=== PATIENT | male | born 1980 | race Caucasian/White ===

== ENCOUNTER 2017-03-24 19:49 | Emergency (ER) | payer OTHER, MEDICAID ==
[2017-03-24 19:50] VITALS: BMI 28.8
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
[2017-03-24 22:03] VITALS: BP 118/68; PULSE 74; RESP 18; TEMP 98.6; O2SAT 99
--- NOTE | 2017-03-25 10:44 | RAD ---
PROCEDURE: Lumbar spine dated 03/24/2017. HISTORY: back pain r/o fx COMPARISON: Comparison made with prior radiographs of the lumbar spine 07/01/2015. Exit FINDINGS: BONES: No evidence of acute compression fractures no retropulsed fragments. Vertebral bodies exhibit normal stature. Vertebral bodies and facets normally aligned. Minor multilevel. DISC SPACES: Narrowing minor posterior disc space narrowing seen at several lower thoracic, few upper lumbar levels as well as the L5-S1 disc space with minimal small marginal anterolateral osteophyte formation. Facet joints are slightly overgrown at the L5-S1, L4-L5 and L3-L4 levels. OTHER FINDINGS: None. IMPRESSION: No acute fractures. Minor multilevel degenerative spondylosis. Of the
== END 2017-03-24 22:08 | disposition home or self-care (01) ==
LOC: ED 19:49
DX: S16.1XXA Strain of muscle, fascia and tendon at neck level, initial encounter (principal); S39.012A Strain of muscle, fascia and tendon of lower back, initial encounter; V43.62XA Car passenger injured in collision with other type car in traffic accident, initial encounter; Y92.410 Unspecified street and highway as the place of occurrence of the external cause

== ENCOUNTER 2017-09-04 16:08 | Observation (INO) | payer MEDICAID, OTHER ==
[2017-09-04 17:14] VITALS: BMI 28.1
--- NOTE | 2017-09-04 17:16 | ED PDOC ---
Arrival/HPI - General Time Seen by Provider: 09/04/17 16:16 Historian: Patient - History of Present Illness Narrative History of Present Illness (Text): 09/04/17 17:10 37 y/o male, no pmh, nkda, c/o fever and bodyache x 2 days. Pt. stated that he has bodyache and fever for the past 1-2 days, incidentally been having LLQ abdominal pain for the past 3 days on and off, no urinary symptoms, no testicular pain, no rash, no chest pain or shortness of breath, no other medical or psychological complaints. Past Medical History - Provider Review Nursing Documentation Reviewed: Yes - Past History Past History: No Previous - Infectious Disease Hx of Infectious Diseases: None - Tetanus Immunization Tetanus Immunization: Unknown - HEENT Other/Comment: sty tp R upper eyelid - Psychiatric Hx Psychophysiologic Disorder: No Hx Substance Use: No - Surgical History Hx Orthopedic Surgery: Yes (R 5TH FINGER) Other/Comment: Right Hand Sx. - Anesthesia Hx Anesthesia: No Hx Anesthesia Reactions: No Hx Malignant Hyperthermia: No - Suicidal Assessment Feels Threatened In Home Enviroment: No Family/Social History - Physician Review Nursing Documentation Reviewed: Yes Family/Social History: Unknown Family HX Smoking Status: Never Smoked Hx Alcohol Use: No Hx Substance Use: No Hx Substance Use Treatment: No Allergies/Home Meds Allergies/Adverse Reactions: Allergies No Known Allergies Allergy (Verified 05/31/15 12:27) Review of Systems - Review of Systems Constitutional: Fatigue, Fevers Eyes: absent: Vision Changes ENT: absent: Hearing Changes Respiratory: Cough. absent: SOB, Sputum Cardiovascular: absent: Chest Pain Gastrointestinal: Abdominal Pain. absent: Diarrhea, Nausea, Vomiting Musculoskeletal: absent: Arthralgias Skin: absent: Rash, Pruritis Neurological: absent: Headache, Dizziness Psychiatric: absent: Anxiety, Depression Physical Exam Vital Signs Reviewed: Yes Vital Signs Temp Pulse Resp BP Pulse Ox 09/04/17 21:42 98.3 F 09/04/17 21:40 98.3 F 09/04/17 21:18 63 18 105/68 98 09/04/17 18:22 95 H 18 130/70 99 09/04/17 16:57 101.6 F H 97 H 18 128/68 98 Temperature: Afebrile Blood Pressure: Normal Pulse: Regular Respiratory Rate: Normal Appearance: Positive for: Well-Appearing, Non-Toxic, Comfortable Pain Distress: Moderate Mental Status: Positive for: Alert and Oriented X 3 - Systems Exam Head: Present: Atraumatic, Normocephalic Pupils: Present: PERRL Extroacular Muscles: Present: EOMI Conjunctiva: Present: Normal Ears: Present: NORMAL TM, Normal Canal. No: Erythema Mouth: Present: Moist Mucous Membranes Pharnyx: No: ERYTHEMA, EXUDATE, TONSILS ENLARGED, Uvular Deviation, Soft Palate/ Uvular Edema Nose (External): No: Abrasion, Contusion, Laceration Nose (Internal): Present: Normal Inspection. No: No Active Bleeding, Rhinorrhea , Septal Hematoma, Epistaxis Neck: Present: Normal Range of Motion. No: Meningeal Signs, Lymphadenopathy Respiratory/Chest: Present: Clear to Auscultation, Good Air Exchange, Rhonchi ( on the lt. midlobe that clear with coughing. ). No: Respiratory Distress, Accessory Muscle Use, Wheezes, Decreased Breath Sounds, Rales, Retracting, Tachypneic, Tender to Palpation Cardiovascular: Present: Regular Rate and Rhythm, Normal S1, S2. No: Murmurs Abdomen: Present: Tenderness (+LLQ tenderness and mild +periumbilical tenderness ), Normal Bowel Sounds. No: Distention, Peritoneal Signs Back: Present: Normal Inspection Upper Extremity: Present: Normal Inspection. No: Cyanosis, Edema Lower Extremity: Present: Normal Inspection. No: Edema Neurological: Present: GCS=15, Speech Normal, Motor Func Grossly Intact, Gait Normal, Memory Normal Skin: Present: Warm, Dry, Normal Color. No: Rashes Psychiatric: Present: Alert, Oriented x 3, Normal Insight, Normal Concentration Medical Decision Making ED Course and Treatment: 09/04/17 17:20 -labs/ua/rapid flu -cxr -CT abdomen and pelvis -IVF/toradol/pepcid/tylenol -Observe and reassess 09/04/17 21:30 -Chest xray show no active disease -Negative influenza -Labs are non-significant, negative lipase -Lactic acid within normal limit. -UA show no UTI -CT abdomen and pelvis show: 1. Probable LLL pneumonia. Followup to resolution to exclude underlying pathology. 2. Borderline enlarged appendix. No definite inflammation. Clinical correlation is needed. 3. Incidental/non-acute findings are described above. 09/04/17 21:30 -IV zosyn ordered for the coverage for pneumonia and possible appendicitis ( less chance). -I spoke to the medical assistant instructor Dr. Benitez and Dr. Deon Brannon, discussed about the case/labs/radiology result in detail, agreed on the admission. -I spoke to the surgical instrument maker Dr. Benito, discussed about the case and findings, will come to evaluate the patient and discussed with Dr. Granda for consult. 09/04/17 21:55 -I discussed with Dr. Mckeon, discussed about the case in detail, request hospitalist to admit and will consult the case, notify the surgical instrument maker for evaluation now (done). - Lab Interpretations Microbiology Results: Microbiology Results 09/04/17 21:30 Blood-Venous Blood Culture - Preliminary NO GROWTH AFTER 4 DAYS 09/04/17 21:00 Blood-Venous Blood Culture - Preliminary NO GROWTH AFTER 4 DAYS Lab Results: 09/05/17 05:30 09/05/17 05:30 Lab Results 09/05/17 07:00: Influenza Type A Ab 1:32 H, Influenza Type B Ab 1:8 H 09/05/17 06:00: HIV 1&2 Ag/Ab, 4th Gen Nonreactive 09/05/17 05:30: Sodium 140, Chloride 103, Potassium 3.4 L, Carbon Dioxide 26, Anion Gap 13, BUN 13, Creatinine 0.9, Est GFR ( Amer) > 60, Est GFR (Non- Af Amer) > 60, Random Glucose 118 H, Calcium 9.0, Total Bilirubin 0.5, AST 38, ALT 40, Alkaline Phosphatase 128 H, Total Protein 7.3, Albumin 3.7, Globulin 3.6 , Albumin/Globulin Ratio 1.0 L 09/05/17 05:30: WBC 7.7, RBC 4.34, Hgb 13.1 L, Hct 38.8 L, MCV 89.4, MCH 30.2, MCHC 33.8, RDW 12.5, Plt Count 200, MPV 10.3, Gran % 73.5 H, Lymph % (Auto) 15.0 L, [place] % (Auto) 9.1 H, Eos % (Auto) 2.1, Baso % (Auto) 0.3, Gran # 5.64, Lymph # 1.2, [place] # 0.7 H, Eos # 0.2, Baso # 0.02 09/05/17 05:30: Mycoplasma pneumon IgG 1.31 H, Mycoplasma pneumon IgM 283 09/05/17 05:30: Procalcitonin 0.07 L 09/04/17 17:35: pO2 32, VBG pH 7.35, VBG pCO2 53.0, VBG HCO3 29.3 H, VBG Total CO2 30.9 H, VBG O2 Sat (Calc) 67.8 H, VBG Base Excess 2.5 H, VBG Potassium 4.0, Sodium 135.0, Chloride 100.0, Glucose 110, Lactate 1.1, FiO2 21.0, Venous Blood Potassium 4.0 09/04/17 17:35: WBC 9.1 D, RBC 4.65, Hgb 14.4, Hct 42.1, MCV 90.5, MCH 31.0, MCHC 34.2, RDW 12.7, Plt Count 213, MPV 10.5, Gran % 76.3 H, Lymph % (Auto) 16.5 L, [place] % (Auto) 6.7 H, Eos % (Auto) 0.3 L, Baso % (Auto) 0.2, Gran # 6.95 H, Lymph # 1.5, [place] # 0.6, Eos # 0.0, Baso # 0.02 09/04/17 17:35: Sodium 137, Chloride 99, Potassium 3.8, Carbon Dioxide 28, Anion Gap 14, BUN 11, Creatinine 0.9, Est GFR ( Amer) > 60, Est GFR (Non- Af Amer) > 60, Random Glucose 107, Calcium 9.4, Magnesium 2.0, Total Bilirubin 0.6, AST 29, ALT 41, Alkaline Phosphatase 137 H, Total Protein 8.3, Albumin 4.4 , Globulin 4.0, Albumin/Globulin Ratio 1.1, Lipase 43 09/04/17 17:35: Urine Color Yellow, Urine Appearance Clear, Urine pH 6.0, Ur Specific [place] 1.025, Urine Protein Trace H, Urine Glucose (UA) Negative, Urine Ketones Trace H, Urine Blood Negative, Urine Nitrate Negative, Urine Bilirubin Negative, Urine Urobilinogen 0.2, Ur Leukocyte Esterase Negative, Urine RBC 1 - 3, Urine WBC 2 - 5, Ur Epithelial Cells 0 - 2, Urine Bacteria Mod 09/04/17 17:20: Influenza Typ A,B (EIA) Negative for flu a/b - RAD Interpretation Radiology Orders: 09/04/17 17:17 CHEST PORTABLE [RAD] Stat 09/04/17 17:57 ABDOMEN & PELVIS [ABD PELVIS PO & IV CONTRAST] [CT] Stat 09/05/17 01:02 CHEST TWO VIEWS (PA/LAT) [RAD] Routine COMPARISON: No relevant prior studies available. FINDINGS: Lower thorax: Patchy consolidation within left lower lobe. ABDOMEN: Liver: Probable mild fatty infiltration. Gallbladder and bile ducts: No calcified stones. No ductal dilation. Pancreas: No ductal dilation. No mass. Spleen: No splenomegaly. Adrenals: No mass. Kidneys and ureters: No mass. No hydronephrosis. Stomach and bowel: No definite mural thickening. No obstruction. Appendix: Borderline enlarged appendix, 6-7 mm in diameter. No definite associated inflammatory stranding. PELVIS: Bladder: Unremarkable. Reproductive: Unremarkable as visualized. ABDOMEN and PELVIS: Intraperitoneal space: No significant fluid collection. No free air. Bones/joints: No acute fracture. Soft tissues: Unremarkable. Vasculature: Unremarkable. No aneurysm. Lymph nodes: No pathologically enlarged lymph nodes. IMPRESSION: 1. Probable LLL pneumonia. Followup to resolution to exclude underlying pathology. 2. Borderline enlarged appendix. No definite inflammation. Clinical correlation is needed. 3. Incidental/non-acute findings are described above. Dictated By: Jeffery Loera MD Dictated Date/Time: 09/04/172118 Signed By: Jeffery Loera MD Date Signed: 2118 Chest xray: +pneumonia noted. Flaring Machine Operator: Radiologist - Medication Orders Current Medication Orders: Discontinued Medications Acetaminophen (Tylenol 325mg Tab) 650 mg PO STAT STA Stop: 09/04/17 17:18 Last Admin: 09/04/17 17:46 Dose: 650 mg MAR Pain/Vitals Document 09/04/17 17:46 SF (Rec: 09/04/17 17:46 SF [facility] [id number]) Pain Reassessment Is This A Pain ReAssessment? Yes Sleep Is patient sleeping during reassessment? No Presence of Pain Presence of Pain Yes Acetaminophen (Tylenol 325mg Tab) 650 mg PO Q6H PRN PRN Reason: Fever >100.4 F Last Admin: 09/05/17 04:27 Dose: 650 mg MAR Pain/Vitals Document 09/05/17 04:27 EMILY (Rec: 09/05/17 04:27 EMILY [id number]) Vitals Temperature (97.6 F-99.6 F) 102.3 F Temperature Source Oral Re-Assess: MAR Pain/Vitals Document 09/05/17 05:27 EMILY (Rec: 09/05/17 07:42 EMILY [id number]) Pain Reassessment Is This A Pain ReAssessment? Yes Sleep Is patient sleeping during reassessment? No Presence of Pain Presence of Pain No Pain Scale Used Pain Scale Used Numeric Azithromycin (Zithromax) 500 mg PO DAILY CHRYSTAL PRN Reason: Protocol Last Admin: 09/07/17 09:18 Dose: 500 mg Benzocaine/Menthol (Cepacol Sore Throat) 1 erin MT Q2H PRN PRN Reason: Sore Throat Last Admin: 09/05/17 17:28 Dose: 1 erin Famotidine (Pepcid) 20 mg IVP STAT STA Stop: 09/04/17 17:22 Last Admin: 09/04/17 17:46 Dose: 20 mg IVP Administration Document 09/04/17 17:46 SF (Rec: 09/04/17 17:47 SF [id number]) Charges for Administration # of IVP Administrations 1 Guaifenesin/Dextromethorphan (Robitussin Dm) 10 ml PO Q4H PRN PRN Reason: Cough Last Admin: 09/05/17 17:28 Dose: 10 ml Sodium Chloride (Sodium Chloride 0.9%) 1,000 mls @ 999 mls/hr IV .Q1H1M STA Stop: 09/04/17 18:17 Last Admin: 09/04/17 17:47 Dose: 999 mls/hr eMAR Start Stop Document 09/04/17 17:47 SF (Rec: 09/04/17 17:47 SF [facility] [id number]) Intravenous Solution Start Date 09/04/17 Start Time 17:47 End Date 09/04/17 End time 18:48 Total Infusion Time 61 Piperacillin Sod/Tazobactam Sod (Zosyn 3.375 In Ns 100ml) 100 mls @ 200 mls/hr IVPB STAT STA PRN Reason: Protocol Stop: 09/04/17 21:55 Last Admin: 09/04/17 21:49 Dose: 200 mls/hr eMAR Start Stop Document 09/04/17 21:49 SF (Rec: 09/04/17 21:50 SF [facility] [id number]) Intravenous Solution Start Date 09/04/17 Start Time 21:50 End Date 09/04/17 End time 22:20 Total Infusion Time 30 Piperacillin Sod/Tazobactam Sod (Zosyn 3.375 In Ns 100ml) 100 mls @ 200 mls/hr IVPB Q6 CHRYSTAL PRN Reason: Protocol Stop: 09/05/17 06:29 Last Admin: 09/05/17 11:36 Dose: 200 mls/hr eMAR Start Stop Document 09/05/17 11:36 ML (Rec: 09/05/17 11:36 ML [id number]) Intravenous Solution Start Date 09/05/17 Start Time 11:36 End Date 09/05/17 End time 12:30 Total Infusion Time 54 Ceftriaxone Sodium (Rocephin 2 Gm Ivpb) 2 gm in 100 mls @ 100 mls/hr IVPB DAILY CHRYSTAL PRN Reason: Protocol Last Admin: 09/07/17 09:48 Dose: 100 mls/hr eMAR Start Stop Document 09/07/17 09:48 RV (Rec: 09/07/17 09:48 RV [id number]) Intravenous Solution Start Date 09/07/17 Start Time 09:48 End Date 09/07/17 End time 10:48 Total Infusion Time 60 Ketorolac Tromethamine (Toradol) 30 mg IVP STAT STA Stop: 09/04/17 17:18 Last Admin: 09/04/17 17:47 Dose: 30 mg MAR Pain Assessment Document 09/04/17 17:47 SF (Rec: 09/04/17 17:47 SF [id number]) Pain Reassessment Is this a pain reassessment? Yes Sleep Is patient sleeping during reassessment? No Presence of Pain Presence of Pain Yes IVP Administration Document 09/04/17 17:47 SF (Rec: 09/04/17 17:47 SF [id number]) Charges for Administration # of IVP Administrations 1 Ketorolac Tromethamine (Toradol) 15 mg IVP Q6 PRN PRN Reason: Pain, moderate (4-7) Last Admin: 09/05/17 13:37 Dose: 15 mg MAR Pain Assessment Document 09/05/17 13:37 ML (Rec: 09/05/17 13:37 ML [id number]) Pain Reassessment Is this a pain reassessment? No Presence of Pain Presence of Pain Yes IVP Administration Document 09/05/17 13:37 ML (Rec: 09/05/17 13:37 ML [id number]) Charges for Administration # of IVP Administrations 1 Re-Assess: MAR Pain Assessment Document 09/05/17 14:36 ML (Rec: 09/05/17 14:36 ML [id number]) Pain Reassessment Is this a pain reassessment? Yes Presence of Pain Presence of Pain No Ondansetron HCl (Zofran Inj) 4 mg IVP Q4H PRN PRN Reason: Nausea/Vomiting Last Admin: 09/05/17 13:32 Dose: 4 mg IVP Administration Document 09/05/17 13:32 ML (Rec: 09/05/17 13:32 ML [id number]) Charges for Administration # of IVP Administrations 1 Oseltamivir Phosphate (Tamiflu Cap) 75 mg PO BID CHRYSTAL PRN Reason: Protocol Stop: 09/10/17 10:01 Last Admin: 09/07/17 09:19 Dose: 75 mg Pantoprazole Sodium (Protonix Inj) 40 mg IVP DAILY [facility] Last Admin: 09/06/17 10:34 Dose: 40 mg IVP Administration Document 09/06/17 10:34 VS (Rec: 09/06/17 10:34 VS [id number]) Charges for Administration # of IVP Administrations 1 Pantoprazole Sodium (Protonix Ec Tab) 40 mg PO ACB [facility] Last Admin: 01/10/18 08:16 Dose: 40 mg Pneumococcal Polyvalent Vaccine (Pneumovax 23 Vaccine) 0.5 ml IM .ONCE ONE Stop: 09/05/17 00:35 Last Admin: 09/05/17 08:50 Dose: Immunization Registry Document 09/05/17 08:50 ML (Rec: 09/05/17 08:51 ML [id number]) Immunization Registry Consent Date 09/04/17 Potassium Chloride (K-Dur 20 Meq Er Tab) 20 meq PO ONCE ONE Stop: 09/05/17 08:58 Last Admin: 09/05/17 11:36 Dose: 20 meq - PA / PALLIATIVE CARE PHYSICIAN / Resident Statement MD/DO has reviewed & agrees with the documentation as recorded. Disposition/Present on Arrival - Present on Arrival Any Indicators Present on Arrival: No History of DVT/PE: No History of Uncontrolled Diabetes: No Urinary Catheter: No History of Decub. Ulcer: No History Surgical Site Infection Following: None - Disposition Have Diagnosis and Disposition been Completed?: Yes Diagnosis: Periumbilical abdominal pain, Pneumonia Disposition: HOSPITALIZED Disposition Time: 21:32 Patient Plan: Admission, Observation Condition: STABLE
[2017-09-04] MEDS ORDERED: Sodium Chloride 0.9% 1,000 ML IV STA (17:17)
[2017-09-04] MEDS ORDERED: Iohexol 240 (50 ml) ONE (18:01)
[2017-09-04 18:43] LABS: VENOUS BLOOD GAS BASE EXCESS 2.5 mmol/L (0.0-2.0); VENOUS BLOOD GAS PO2 32 mm/Hg (30-55); VENOUS BLOOD PH 7.35 (7.32-7.43)
[2017-09-04 18:46] LABS: ALB/GLOB RATIO 1.1 (1.1-1.8); ALBUMIN 4.4 g/dL (3.0-4.8); ALT/SGPT 41 U/L (7-56); AST/SGOT 29 U/L (17-59); BLOOD UREA NITROGEN 11 mg/dL (7-21); CALCIUM 9.4 mg/dL (8.4-10.5); GFR AFRICAN-AMERICAN > 60; GFR NON-AFRICAN AMERICAN > 60; LIPASE 43 U/L (23-300)
[2017-09-04 18:47] LABS: BASO # 0.02 K/mm3 (0.0-2.0); BASO % 0.2 % (0.0-3.0); EOS % 0.3 % (1.5-5.0); GRAN # 6.95 (1.4-6.5); GRAN % 76.3 % (50.0-68.0); HEMOGLOBIN 14.4 g/dL (14.0-18.0); LYMPH # 1.5 (1.2-3.4); LYMPH % 16.5 % (22.0-35.0); MEAN CELL VOLUME 90.5 fl (80.0-105.0); MEAN CORPUSCULAR HGB CONC 34.2 g/dl (31.0-37.0); MEAN PLATELET VOLUME 10.5 fl (7.0-11.0); MONO # 0.6 (0.1-0.6); MONO % 6.7 % (1.0-6.0); RBC 4.65 10^6/uL (3.5-6.1); RED CELL DISTRIBUTION WIDTH 12.7 % (11.5-14.5); WHITE BLOOD COUNT 9.1 10^3/ul (4.5-11.0)
[2017-09-04 18:49] LABS: URINE BILIRUBIN NEGATIVE (NEGATIVE); URINE BLOOD NEGATIVE (NEGATIVE); URINE GLUCOSE (UA) NEGATIVE (NEGATIVE); URINE LEUKOCYTE ESTERASE NEGATIVE Leu/uL (NEGATIVE); URINE NITRATE NEGATIVE (NEGATIVE); URINE PROTEIN TRACE mg/dL (<30 mg/dL); URINE UROBILINOGEN 0.2 E.U./dL (<1 E.U./dL)
[2017-09-04 18:51] LABS: URINE APPEARANCE CLEAR (CLEAR); URINE COLOR YELLOW (YELLOW)
[2017-09-04 19:01] LABS: URINE EPITHELIAL CELLS 0 - 2 /hpf (0-5)
[2017-09-04 19:02] LABS: URINE BACTERIA MOD (NEG)
[2017-09-04] MEDS ORDERED: Iohexol 350 MG/100 ML VIAL ONE (19:56)
--- NOTE | 2017-09-04 21:20 | CT ---
EXAM: CT Abdomen and Pelvis With Intravenous Contrast CLINICAL HISTORY: 37 years old, male; Pain; Abdominal pain; Patient HX: Llq pain TECHNIQUE: Axial computed tomography images of the abdomen and pelvis with intravenous contrast. All CT scans at this facility use one or more dose reduction techniques, viz.: automated exposure control; ma/kV adjustment per patient size (including targeted exams where dose is matched to indication; i.e. head); or iterative reconstruction technique. Coronal and sagittal reformatted images were created and reviewed. CONTRAST: 98 mL of omnipaque 350 administered intravenously. COMPARISON: No relevant prior studies available. FINDINGS: Lower thorax: Patchy consolidation within left lower lobe. ABDOMEN: Liver: Probable mild fatty infiltration. Gallbladder and bile ducts: No calcified stones. No ductal dilation. Pancreas: No ductal dilation. No mass. Spleen: No splenomegaly. Adrenals: No mass. Kidneys and ureters: No mass. No hydronephrosis. Stomach and bowel: No definite mural thickening. No obstruction. Appendix: Borderline enlarged appendix, 6-7 mm in diameter. No definite associated inflammatory stranding. PELVIS: Bladder: Unremarkable. Reproductive: Unremarkable as visualized. ABDOMEN and PELVIS: Intraperitoneal space: No significant fluid collection. No free air. Bones/joints: No acute fracture. Soft tissues: Unremarkable. Vasculature: Unremarkable. No aneurysm. Lymph nodes: No pathologically enlarged lymph nodes. IMPRESSION: 1. Probable LLL pneumonia. Followup to resolution to exclude underlying pathology. 2. Borderline enlarged appendix. No definite inflammation. Clinical correlation is needed. 3. Incidental/non-acute findings are described above.
[2017-09-04] MEDS ORDERED: cefTRIAXone 1 gm 1 GM/100 ML BAG IVPB STA (21:26)
[2017-09-04] MEDS ORDERED: Piperacillin/Tazobact 3.375 gm 100 ML IVPB STA (21:26)
--- NOTE | 2017-09-04 22:14 | CP.PCM.CON ---
<FarhanJigna - Last Filed: 09/04/17 22:14> History of Present Illness - History of Present Illness History of Present Illness: GENERAL SURGERY CONSULT NOTE FOR DR. WILSON 37yo M with no significant PMHx presents to the ED with fever, chills, and nausea. On Tuesday morning at 1AM, he woke up shaking due to chills. Then he felt hot. He had these symptoms back and forth. Then this morning, he had nausea and dizziness which prompted him to come to the ED. Patient has also been having on and off LUQ pain for weeks. Patient is unable to quantify how many. He reports heartburn after eating spicy food. He has diarrhea sometimes after eating sugary foods. He denies dysuria, frequency, CP, SOB, rhinorrhea, sore throat. He does have a mild nonproductive cough. Flu was negative. PMHx: none Surgeries: Right hand 5th finger tendon reconstruction ~2007 in [place] Allergies: none Social history: denies tobacco, illicit drug use or etoh. From [facility]. No recent travel. Review of Systems - Review of Systems All systems: reviewed and no additional remarkable complaints except (as per HPI ) Past Patient History - Infectious Disease Hx of Infectious Diseases: None - Tetanus Immunizations Tetanus Immunization: Unknown - Past Social History Smoking Status: Never Smoked - CARDIAC Hx Cardiac Disorders: No - PULMONARY Hx Respiratory Disorders: No - NEUROLOGICAL Hx Neurological Disorder: No - HEENT Other/Comment: sty tp R upper eyelid - RENAL Hx Chronic Kidney Disease: No - ENDOCRINE/METABOLIC Hx Endocrine Disorders: No - HEMATOLOGICAL/ONCOLOGICAL Hx Blood Disorders: No - INTEGUMENTARY Hx Dermatological Problems: No - MUSCULOSKELETAL/RHEUMATOLOGICAL Hx Musculoskeletal Disorders: No - GASTROINTESTINAL Hx Gastrointestinal Disorders: No - GENITOURINARY/GYNECOLOGICAL Hx Genitourinary Disorders: No - PSYCHIATRIC Hx Psychophysiologic Disorder: No Hx Substance Use: No - SURGICAL HISTORY Hx Orthopedic Surgery: Yes (R 5TH FINGER) Other/Comment: Right Hand Sx. - ANESTHESIA Hx Anesthesia: No Hx Anesthesia Reactions: No Hx Malignant Hyperthermia: No Meds Allergies/Adverse Reactions: Allergies Allergy/AdvReac Type Severity Reaction Status Date / Time No Known Allergies Allergy Verified 05/31/15 12:27 Physical Exam - Constitutional Appears: Well, Non-toxic, No Acute Distress - Head Exam Head Exam: ATRAUMATIC, NORMAL INSPECTION - Eye Exam Eye Exam: EOMI, Normal appearance - Respiratory Exam Respiratory Exam: NORMAL BREATHING PATTERN. absent: Respiratory Distress - Cardiovascular Exam Cardiovascular Exam: +S1, +S2 - GI/Abdominal Exam GI & Abdominal Exam: Soft, Tenderness (very mild tenderness in LUQ). absent: Distended, Firm, Guarding, Rebound, Rigid Additional comments: Negative McBurney's point No RLQ tenderness on deep palpation - Extremities Exam Extremities exam: Positive for: normal inspection. Negative for: calf tenderness - Neurological Exam Neurological exam: Alert, CN II-XII Intact, Oriented x3 - Psychiatric Exam Psychiatric exam: Normal Affect, Normal Mood - Skin Skin Exam: Dry, Normal Color, Warm Results - Vital Signs Recent Vital Signs: Last Vital Signs Temp 98.3 F 09/04/17 21:42 Pulse 63 09/04/17 21:18 Resp 18 09/04/17 21:18 BP 105/68 09/04/17 21:18 Pulse Ox 98 09/04/17 21:18 - Labs Result Diagrams: 09/04/17 17:35 09/04/17 17:35 Assessment & Plan - Assessment and Plan (Free Text) Assessment: 37yo M with no significant PMHx presents with fever, chills, and nausea. Surgery consulted for rule out appendicitis - Febrile 101.6 on arrival. Currently afebrile - No leukocytosis - CT: appendix borderline enlarged 6-7mm w/o any associated inflammatory stranding. Probable LLL pneumonia - Appendicitis unlikely given benign physical exam, lack of inflammation on CT, and normal labs - LUQ abdominal pain may be referred from LLL pneumonia - Will observe overnight with serial abdominal exams - Will FU AM labs - Discussed plan with Dr. Katie Real PGY_3 <Roderick Wilson - Last Filed: 09/12/17 12:10> Results - Vital Signs Recent Vital Signs: Last Vital Signs Temp 98 F 09/07/17 10:09 Pulse 50 L 09/07/17 10:09 Resp 18 09/07/17 10:09 BP 105/69 09/07/17 10:09 Pulse Ox 97 09/07/17 10:09 - Labs Result Diagrams: 09/07/17 06:00 09/07/17 06:00 Assessment & Plan - Assessment and Plan (Free Text) Assessment: Patient was seen, evaluated and examined by me. I agree with the assessment and plan as per the resident's note.
[2017-09-05] MEDS: Piperacillin/Tazobact 3.375 gm 100 ML IVPB SCH ×3 (00:20→11:36)
[2017-09-05] MEDS ORDERED: Pneumococcal 23-Valent Vaccine IM ONE (00:34)
[2017-09-05] MEDS ORDERED: Influenza Vaccine 60 mcg/0.5 mL SYR (4YR UP) IM ONE (00:34)
--- NOTE | 2017-09-05 00:56 | CP.PCM.HP ---
<GustavoEmmanuel - Last Filed: 09/05/17 02:02> History of Present Illness - History of Present Illness History of Present Illness: Mr. Hitchcock is a 37 year old male with no significant past medical history presents with tactile fever, chills, and nausea that started Tuesday (09/03) morning around 0100. Patient reports that Tuesday morning around 0100 he awoke with shaking chills and states that he felt "hot". He endorses that he intermittent chills and feelings of warmth throughout the next 48 hours. He awoke this morning and felt slightly dizzy and nauseous, which prompted him to come to the hospital for further evaluation. Patient has also been having intermittent LUQ pain for weeks as well as symptoms of indigestion and non- bloody diarrhea that are triggered with certain foods, mostly foods high in fat such as cheese, milk and tortillas. He also endorses a nonproductive cough intermittently for the past week, approximately. He denies any fever, headache , changes in her vision, tinnitus, ear pain/discharge, rhinorrhea, epistaxis, sore throat, neck pain/stiffness, chest pain, palpitations, LE edema, SOB, wheezing, hemoptysis, vomiting, diarrhea, constipation, melena, hematochezia, burning/pain with urination, urinary frequency, rashes, numbness/tingling/ weakness of any extremity, recent travel or any sick contacts. In the ED, patient had a CT Abdomen/Pelvis that showed probably LLL pneumonia and a borderline enlarged appendix. PMH: Denies PSH: Right hand 5th finger tendon reconstruction ~2007 in [place] Family History: Denies Social History: Denies any tobacco, alcohol or illicit drug use; Lives at home with and two children; Originally from [facility]; Works in [employer] Allergies: NKDA Home Medications: As per MAR Present on Admission - Present on Admission Any Indicators Present on Admission: No Review of Systems - Review of Systems Review of Systems: As stated in HPI, otherwise negative Past Patient History - Infectious Disease Hx of Infectious Diseases: None - Tetanus Immunizations Tetanus Immunization: Unknown - Past Social History Smoking Status: Never Smoked - CARDIAC Hx Cardiac Disorders: No - PULMONARY Hx Respiratory Disorders: No - NEUROLOGICAL Hx Neurological Disorder: No - HEENT Other/Comment: sty tp R upper eyelid - RENAL Hx Chronic Kidney Disease: No - ENDOCRINE/METABOLIC Hx Endocrine Disorders: No - HEMATOLOGICAL/ONCOLOGICAL Hx Blood Disorders: No - INTEGUMENTARY Hx Dermatological Problems: No - MUSCULOSKELETAL/RHEUMATOLOGICAL Hx Falls: No - GASTROINTESTINAL Hx Gastrointestinal Disorders: No - GENITOURINARY/GYNECOLOGICAL Hx Genitourinary Disorders: No - PSYCHIATRIC Hx Psychophysiologic Disorder: No Hx Substance Use: No - SURGICAL HISTORY Hx Orthopedic Surgery: Yes (R 5TH FINGER) Other/Comment: Right Hand Sx. - ANESTHESIA Hx Anesthesia: No Hx Anesthesia Reactions: No Hx Malignant Hyperthermia: No Meds Allergies/Adverse Reactions: Allergies Allergy/AdvReac Type Severity Reaction Status Date / Time No Known Allergies Allergy Verified 05/31/15 12:27 Physical Exam - Constitutional Appears: Non-toxic, No Acute Distress - Head Exam Head Exam: ATRAUMATIC, NORMAL INSPECTION, NORMOCEPHALIC - Eye Exam Eye Exam: EOMI, Normal appearance, PERRL. absent: Conjunctival injection, Nystagmus, Periorbital swelling, Periorbital tenderness, Scleral icterus Pupil Exam: NORMAL ACCOMODATION, PERRL. absent: Fixed, Irregular, Miosis, Mydriatic, Unequal - ENT Exam ENT Exam: Mucous Membranes Moist, Normal Exam, Normal External Ear Exam, Normal Oropharynx - Neck Exam Neck exam: Positive for: Full Rom, Normal Inspection. Negative for: Lymphadenopathy, Meningismus, Tenderness, Thyromegaly - Respiratory Exam Respiratory Exam: Decreased Breath Sounds (LLL decreased breath sounds), NORMAL BREATHING PATTERN. absent: Accessory Muscle Use, Chest Wall Tenderness, Clear to Auscultation Bilateral, Prolonged Expiratory Phase, Rales, Rhonchi, Wheezes, Respiratory Distress, Stridor - Cardiovascular Exam Cardiovascular Exam: REGULAR RHYTHM, RRR, +S1, +S2. absent: Bradycardia, Tachycardia, Clicks, Diastolic murmur, Gallop, Irregular Rhythm, JVD, Rubs, +S4 , Systolic Murmur - GI/Abdominal Exam GI & Abdominal Exam: Normal Bowel Sounds, Soft, Tenderness (Mild LUQ tenderness to deep palpation; Negative McBurneys and Negative [place]). absent: Bruit, Diminished Bowel Sounds, Distended, Firm, Guarding, Hernia, Hyperactive Bowel Sounds, Hypoactive Bowel Sounds, Mass, Organomegaly, Pulsatile Mass, Rebound, Rigid - Extremities Exam Extremities exam: Positive for: full ROM, normal capillary refill, normal inspection, pedal pulses present. Negative for: calf tenderness, joint swelling , pedal edema, tenderness - Back Exam Back exam: FULL ROM, NORMAL INSPECTION. absent: CVA tenderness (L), CVA tenderness (R), muscle spasm, paraspinal tenderness, rash noted, tenderness, vertebral tenderness - Neurological Exam Neurological exam: Alert, CN II-XII Intact, Normal Gait, Oriented x3 - Psychiatric Exam Psychiatric exam: Normal Affect, Normal Mood - Skin Skin Exam: Dry, Intact, Normal Color, Warm Results - Vital Signs Recent Vital Signs: Last Vital Signs Temp 98.3 F 09/04/17 22:58 Pulse 64 09/04/17 22:58 Resp 20 09/05/17 00:00 BP 101/57 L 09/04/17 22:58 Pulse Ox 96 09/04/17 22:58 - Labs Result Diagrams: 09/04/17 17:35 09/04/17 17:35 Assessment & Plan - Assessment and Plan (Free Text) Assessment: 37 year old male with no significant past medical history presents with tactile fever, chills, and nausea that started Tuesday (09/03) morning around 0100. In the ED, patient had a CT Abdomen/Pelvis that showed probably LLL pneumonia and a borderline enlarged appendix. Plan: 1. LLL Pneumonia -CT Abdomen/Pelvis showing probable LLL pneumonia with Chest X-Ray portable read pending -Chest X-Ray Two View (PA/Lateral) ordered for AM -Zosyn 3.375mg IVPB Q6 -Tylenol PRN for Fever -Zofran PRN for N/V -Rapid Influenza A&B, Legionella, HIV, Mycoplasma, Blood Culture and Procalcitonin all pending -Daily CBC -ID Consulted 2. Mildly Enlarged Appendix -CT Abdomen/Pelvis showing mildly enlarged appendix -Toradol Q6 PRN for pain control -Regular Diet -Surgery consulted GI Prophylaxis: Protonix DVT Prophylaxis: SCD's Patient seen and evaluated with attending, Dr. Deon Brannon. - Date & Time Date: 09/05/17 Time: 00:57 <Deon Brannon - Last Filed: 09/06/17 06:34> Results - Vital Signs Recent Vital Signs: Last Vital Signs Temp 102.3 F H 09/05/17 04:27 Pulse 64 09/04/17 22:58 Resp 20 09/05/17 00:00 BP 101/57 L 09/04/17 22:58 Pulse Ox 96 09/04/17 22:58 - Labs Result Diagrams: 09/05/17 05:30 09/05/17 05:30
[2017-09-05 06:27] LABS: BASO # 0.02 K/mm3 (0.0-2.0); BASO % 0.3 % (0.0-3.0); EOS # 0.2 (0.0-0.7); EOS % 2.1 % (1.5-5.0); GRAN # 5.64 (1.4-6.5); GRAN % 73.5 % (50.0-68.0); HEMOGLOBIN 13.1 g/dL (14.0-18.0); LYMPH # 1.2 (1.2-3.4); MEAN CELL VOLUME 89.4 fl (80.0-105.0); MEAN CORPUSCULAR HEMOGLOBIN 30.2 pg (25.0-35.0); MEAN CORPUSCULAR HGB CONC 33.8 g/dl (31.0-37.0); MEAN PLATELET VOLUME 10.3 fl (7.0-11.0); MONO # 0.7 (0.1-0.6); MONO % 9.1 % (1.0-6.0); RBC 4.34 10^6/uL (3.5-6.1); RED CELL DISTRIBUTION WIDTH 12.5 % (11.5-14.5); WHITE BLOOD COUNT 7.7 10^3/ul (4.5-11.0)
[2017-09-05 07:17] LABS: ALBUMIN 3.7 g/dL (3.0-4.8); ALT/SGPT 40 U/L (7-56); AST/SGOT 38 U/L (17-59); BLOOD UREA NITROGEN 13 mg/dL (7-21); GFR AFRICAN-AMERICAN > 60; GFR NON-AFRICAN AMERICAN > 60
[2017-09-05] MEDS ORDERED: cefTRIAXone 2 GM IN NS 2 GM/100 ML BAG IVPB SCH (07:30)
[2017-09-05] MEDS ORDERED: Potassium Chloride 20 mEq ER Tab PO ONE (08:57)
--- NOTE | 2017-09-05 08:57 | CP.PCM.PN ---
<Lavelle Pendleton - Last Filed: 09/05/17 17:14> Subjective - Date & Time of Evaluation Date of Evaluation: 09/05/17 Time of Evaluation: 07:15 - Subjective Subjective: General Surgery - Dr. Wilson Patient seen and evaluated at bedside. Patient noted to have a fever of 102.3 at 4 AM today. Patient reports symptoms of fever, chills, nausea and non productive cough. Patient denies vomiting, chest pain, shortness of breath. Objective - Vital Signs/Intake and Output Vital Signs (last 24 hours): Temp Pulse Resp BP Pulse Ox 99.1 F 64 20 101/57 L 96 09/05/17 07:00 09/04/17 22:58 09/05/17 00:00 09/04/17 22:58 09/04/17 22:58 Intake and Output: 09/05/17 09/05/17 06:59 18:59 Intake Total 100 Balance 100 - Medications Medications: Current Medications Acetaminophen (Tylenol 325mg Tab) 650 mg PO Q6H PRN PRN Reason: Fever >100.4 F Last Admin: 09/05/17 04:27 Dose: 650 mg Azithromycin (Zithromax) 500 mg PO DAILY CHRYSTAL PRN Reason: Protocol Ceftriaxone Sodium (Rocephin 2 Gm Ivpb) 2 gm in 100 mls @ 100 mls/hr IVPB DAILY CHRYSTAL PRN Reason: Protocol Ketorolac Tromethamine (Toradol) 15 mg IVP Q6 PRN PRN Reason: Pain, moderate (4-7) Ondansetron HCl (Zofran Inj) 4 mg IVP Q4H PRN PRN Reason: Nausea/Vomiting Oseltamivir Phosphate (Tamiflu Cap) 75 mg PO BID CHRYSTAL PRN Reason: Protocol Stop: 09/10/17 10:01 Pantoprazole Sodium (Protonix Inj) 40 mg IVP DAILY CHRYSTAL - Labs Labs: 09/05/17 05:30 09/05/17 05:30 - Constitutional Appears: Non-toxic - Head Exam Head Exam: ATRAUMATIC - Eye Exam Eye Exam: EOMI, PERRL - ENT Exam ENT Exam: Mucous Membranes Moist - Respiratory Exam Respiratory Exam: Decreased Breath Sounds, NORMAL BREATHING PATTERN. absent: Accessory Muscle Use, Chest Wall Tenderness, Wheezes Additional comments: Left lower lung base with diminished breath sounds - Cardiovascular Exam Cardiovascular Exam: REGULAR RHYTHM, +S1, +S2 - GI/Abdominal Exam GI & Abdominal Exam: Soft, Tenderness (LUQ pain associated with deep palpation, ), Normal Bowel Sounds. absent: Firm, Guarding, Rigid, Mass - Extremities Exam Extremities Exam: absent: Calf Tenderness - Neurological Exam Neurological Exam: Alert, Awake, Oriented x3 - Psychiatric Exam Psychiatric exam: Normal Affect, Normal Mood - Skin Skin Exam: Dry, Intact Assessment and Plan - Assessment and Plan (Free Text) Assessment: 37yo M with no significant PMHx presents with fever, chills, and nausea who is being followed for possible appendicitis Plan: - Febrile last night 102.3, absent leukocytosis - LUQ abdominal pain may be referred from LLL pneumonia - Appendicitis suspicion low secondary to physical exam and absent leukocytosis - patient tolerating diet, no surgical intervention at this time - Discussed plan with Dr. Katie Pendleton PGY1 <Roderick Wilson - Last Filed: 09/06/17 16:57> Objective - Vital Signs/Intake and Output Vital Signs (last 24 hours): Temp Pulse Resp BP Pulse Ox 98 F 64 20 95/60 L 97 09/06/17 08:17 09/06/17 08:17 09/06/17 08:17 09/06/17 08:17 09/06/17 08:17 - Medications Medications: Current Medications Acetaminophen (Tylenol 325mg Tab) 650 mg PO Q6H PRN PRN Reason: Fever >100.4 F Last Admin: 09/05/17 04:27 Dose: 650 mg Azithromycin (Zithromax) 500 mg PO DAILY CHRYSTAL PRN Reason: Protocol Last Admin: 09/06/17 10:34 Dose: 500 mg Benzocaine/Menthol (Cepacol Sore Throat) 1 erin MT Q2H PRN PRN Reason: Sore Throat Last Admin: 09/05/17 17:28 Dose: 1 erin Guaifenesin/Dextromethorphan (Robitussin Dm) 10 ml PO Q4H PRN PRN Reason: Cough Last Admin: 09/05/17 17:28 Dose: 10 ml Ceftriaxone Sodium (Rocephin 2 Gm Ivpb) 2 gm in 100 mls @ 100 mls/hr IVPB DAILY CHRYSTAL PRN Reason: Protocol Last Admin: 09/06/17 10:35 Dose: 100 mls/hr Ketorolac Tromethamine (Toradol) 15 mg IVP Q6 PRN PRN Reason: Pain, moderate (4-7) Last Admin: 09/05/17 13:37 Dose: 15 mg Ondansetron HCl (Zofran Inj) 4 mg IVP Q4H PRN PRN Reason: Nausea/Vomiting Last Admin: 09/05/17 13:32 Dose: 4 mg Oseltamivir Phosphate (Tamiflu Cap) 75 mg PO BID CHRYSTAL PRN Reason: Protocol Stop: 09/10/17 10:01 Last Admin: 09/06/17 10:34 Dose: 75 mg Pantoprazole Sodium (Protonix Ec Tab) 40 mg PO ACB CHRYSTAL - Labs Labs: 09/06/17 10:20 09/06/17 10:20 Assessment and Plan - Assessment and Plan (Free Text) Plan: Patient was seen, evaluated and examined by me. I agree with the assessment and plan as per the resident's note.
--- NOTE | 2017-09-05 09:08 | RAD ---
HISTORY: Medical clearance. Portable study 17:24 COMPARISON: 12/31/2015 FINDINGS: LUNGS: Left lower lobe infiltrate. PLEURA: No significant pleural effusion identified, no pneumothorax apparent. CARDIOVASCULAR: Normal. OSSEOUS STRUCTURES: No significant abnormalities. VISUALIZED UPPER ABDOMEN: Normal. OTHER FINDINGS: None. IMPRESSION: Left lower lobe retrocardiac infiltrate suspicious for pneumonia.
--- NOTE | 2017-09-05 11:11 | RAD ---
HISTORY: LLL PNA COMPARISON: No prior. TECHNIQUE: Chest PA and lateral FINDINGS: LUNGS: There is an increasing infiltrate at the left lung base. This can be seen posteriorly on the lateral view. PLEURA: No significant pleural effusion identified. No pneumothorax apparent. CARDIOVASCULAR: Normal. OSSEOUS STRUCTURES: No significant abnormalities. VISUALIZED UPPER ABDOMEN: Normal. OTHER FINDINGS: None. IMPRESSION: Left lower lobe pneumonia
[2017-09-05] MEDS: cefTRIAXone 2 GM IN NS 2 GM/100 ML BAG IVPB SCH (11:36)
[2017-09-05] MEDS ORDERED: Benzocaine/Menthol (Cepacol) Lozenge MT PRN (13:49)
[2017-09-05] MEDS ORDERED: guaiFENesin DM 200 mg-20 mg/10 ml UD PO PRN (13:49)
--- NOTE | 2017-09-05 14:34 | CP.PCM.CON ---
History of Present Illness - History of Present Illness History of Present Illness: 37 year old male with no significant PMH came in to [facility] complaining of fever, chills, body aches up to the bone since 2 days ago. He also has cough which has been dry but is starting to become more productive. He also started developing rhinorrhe, but no sore throat. He denies eating anything out of the ordinary, no headache or dizziness, no chest pain, no nausea or vomiting, no diarrhea, no hematuria, no dysuria. In the ED, CT A/P was done which showed left lower lobe pneumonia. Infectious Diseases consult is requested to further evaluate and manage. Review of Systems - Review of Systems All systems: reviewed and no additional remarkable complaints except (as per HPI ) Past Patient History - Infectious Disease Hx of Infectious Diseases: None - Tetanus Immunizations Tetanus Immunization: Unknown - Past Social History Smoking Status: Never Smoked - CARDIAC Hx Cardiac Disorders: No - PULMONARY Hx Respiratory Disorders: No - NEUROLOGICAL Hx Neurological Disorder: No - HEENT Other/Comment: sty tp R upper eyelid - RENAL Hx Chronic Kidney Disease: No - ENDOCRINE/METABOLIC Hx Endocrine Disorders: No - HEMATOLOGICAL/ONCOLOGICAL Hx Blood Disorders: No - INTEGUMENTARY Hx Dermatological Problems: No - MUSCULOSKELETAL/RHEUMATOLOGICAL Hx Falls: No - GASTROINTESTINAL Hx Gastrointestinal Disorders: No - GENITOURINARY/GYNECOLOGICAL Hx Genitourinary Disorders: No - PSYCHIATRIC Hx Psychophysiologic Disorder: No Hx Substance Use: No - SURGICAL HISTORY Hx Orthopedic Surgery: Yes (R 5TH FINGER) Other/Comment: Right Hand Sx. - ANESTHESIA Hx Anesthesia: No Hx Anesthesia Reactions: No Hx Malignant Hyperthermia: No Meds Allergies/Adverse Reactions: Allergies Allergy/AdvReac Type Severity Reaction Status Date / Time No Known Allergies Allergy Verified 05/31/15 12:27 - Medications Medications: Current Medications Acetaminophen (Tylenol 325mg Tab) 650 mg PO Q6H PRN PRN Reason: Fever >100.4 F Last Admin: 09/05/17 04:27 Dose: 650 mg Ketorolac Tromethamine (Toradol) 15 mg IVP Q6 PRN PRN Reason: Pain, moderate (4-7) Ondansetron HCl (Zofran Inj) 4 mg IVP Q4H PRN PRN Reason: Nausea/Vomiting Pantoprazole Sodium (Protonix Inj) 40 mg IVP DAILY CHRYSTAL Physical Exam - Constitutional Appears: Non-toxic - Head Exam Head Exam: NORMAL INSPECTION - ENT Exam ENT Exam: Mucous Membranes Moist - Neck Exam Neck exam: Negative for: Lymphadenopathy, Meningismus - Respiratory Exam Respiratory Exam: Decreased Breath Sounds (at the bases), Rales - Cardiovascular Exam Cardiovascular Exam: +S1, +S2 - GI/Abdominal Exam GI & Abdominal Exam: Soft. absent: Tenderness Results - Vital Signs Recent Vital Signs: Last Vital Signs Temp 99.1 F 09/05/17 07:00 Pulse 64 09/04/17 22:58 Resp 20 09/05/17 00:00 BP 101/57 L 09/04/17 22:58 Pulse Ox 96 09/04/17 22:58 - Labs Result Diagrams: 09/05/17 05:30 09/05/17 05:30 Labs: Laboratory Results - last 24 hr 09/05/17 05:30 WBC 7.7 RBC 4.34 Hgb 13.1 L Hct 38.8 L MCV 89.4 MCH 30.2 MCHC 33.8 RDW 12.5 Plt Count 200 MPV 10.3 Gran % 73.5 H Lymph % (Auto) 15.0 L [place] % (Auto) 9.1 H Eos % (Auto) 2.1 Baso % (Auto) 0.3 Gran # 5.64 Lymph # 1.2 [place] # 0.7 H Eos # 0.2 Baso # 0.02 Assessment & Plan - Assessment and Plan (Free Text) Plan: Assessment Sepsis due to left lower lobe pneumonia RO Influenza Plan Started the patient on Rocephin and Zithromax as well as Tamiflu pending blood, sputum cx, PCT, rapid flu test; reviewed CT A/P will monitor clinical response
--- NOTE | 2017-09-05 20:33 | CARD ---
APPROVED REPORT EKG Measurement Heart [id number] <Conclusion> Normal sinus rhythm Rightward axis Borderline ECG
[2017-09-05 21:09] VITALS: O2SAT 97
[2017-09-06 10:32] LABS: MEAN CELL VOLUME 89.4 fl (80.0-105.0); MEAN CORPUSCULAR HGB CONC 33.5 g/dl (31.0-37.0); MEAN PLATELET VOLUME 9.9 fl (7.0-11.0); RBC 4.34 10^6/uL (3.5-6.1); RED CELL DISTRIBUTION WIDTH 12.5 % (11.5-14.5); WHITE BLOOD COUNT 5.4 10^3/ul (4.5-11.0)
[2017-09-06] MEDS: cefTRIAXone 2 GM IN NS 2 GM/100 ML BAG IVPB SCH (10:35)
[2017-09-06 10:45] LABS: ALB/GLOB RATIO 1.1 (1.1-1.8); ALBUMIN 3.9 g/dL (3.0-4.8); ALT/SGPT 37 U/L (7-56); AST/SGOT 35 U/L (17-59); BLOOD UREA NITROGEN 9 mg/dL (7-21); CALCIUM 9.1 mg/dL (8.4-10.5); GFR AFRICAN-AMERICAN > 60; GFR NON-AFRICAN AMERICAN > 60
--- NOTE | 2017-09-06 11:32 | CP.PCM.PN ---
<Lavelle Gee - Last Filed: 09/06/17 11:14> Subjective - Date & Time of Evaluation Date of Evaluation: 09/06/17 Time of Evaluation: 11:32 - Subjective Subjective: Medicine Progress Note Pt seen and examined at bedside. No acute overnight events. Pt states that he feels better overall. Cough and SOB is improving. Feels a little dizzy when getting up too fast. Pt tolerating diet. Pt denied CP, nausea, vomiting, diarrhea, abdominal pain, fever, chills, body aches, [place], or fatigue. Objective - Vital Signs/Intake and Output Vital Signs (last 24 hours): Temp Pulse Resp BP Pulse Ox 98 F 64 20 95/60 L 97 09/06/17 08:17 09/06/17 08:17 09/06/17 08:17 09/06/17 08:17 09/06/17 08:17 - Medications Medications: Current Medications Acetaminophen (Tylenol 325mg Tab) 650 mg PO Q6H PRN PRN Reason: Fever >100.4 F Last Admin: 09/05/17 04:27 Dose: 650 mg Azithromycin (Zithromax) 500 mg PO DAILY [facility] PRN Reason: Protocol Last Admin: 09/06/17 10:34 Dose: 500 mg Benzocaine/Menthol (Cepacol Sore Throat) 1 erin MT Q2H PRN PRN Reason: Sore Throat Last Admin: 09/05/17 17:28 Dose: 1 erin Guaifenesin/Dextromethorphan (Robitussin Dm) 10 ml PO Q4H PRN PRN Reason: Cough Last Admin: 09/05/17 17:28 Dose: 10 ml Ceftriaxone Sodium (Rocephin 2 Gm Ivpb) 2 gm in 100 mls @ 100 mls/hr IVPB DAILY [facility] PRN Reason: Protocol Last Admin: 09/06/17 10:35 Dose: 100 mls/hr Ketorolac Tromethamine (Toradol) 15 mg IVP Q6 PRN PRN Reason: Pain, moderate (4-7) Last Admin: 09/05/17 13:37 Dose: 15 mg Ondansetron HCl (Zofran Inj) 4 mg IVP Q4H PRN PRN Reason: Nausea/Vomiting Last Admin: 09/05/17 13:32 Dose: 4 mg Oseltamivir Phosphate (Tamiflu Cap) 75 mg PO BID [facility] PRN Reason: Protocol Stop: 09/10/17 10:01 Last Admin: 09/06/17 10:34 Dose: 75 mg Pantoprazole Sodium (Protonix Inj) 40 mg IVP DAILY [facility] Last Admin: 09/06/17 10:34 Dose: 40 mg - Labs Labs: 09/06/17 10:20 09/06/17 10:20 - Constitutional Appears: No Acute Distress - Head Exam Head Exam: NORMAL INSPECTION - Eye Exam Eye Exam: Normal appearance - ENT Exam ENT Exam: Normal Exam - Neck Exam Neck Exam: Normal Inspection - Respiratory Exam Respiratory Exam: Rales (LLL). absent: Accessory Muscle Use, Rhonchi, Wheezes, Respiratory Distress - Cardiovascular Exam Cardiovascular Exam: RRR. absent: Gallop, Rubs, Murmur - GI/Abdominal Exam GI & Abdominal Exam: Soft. absent: Distended, Guarding, Tenderness, Rebound - Extremities Exam Extremities Exam: Normal Inspection - Back Exam Back Exam: NORMAL INSPECTION - Neurological Exam Neurological Exam: Alert, Awake, Oriented x3 - Psychiatric Exam Psychiatric exam: Normal Affect, Normal Mood - Skin Skin Exam: Diaphoretic, Intact, Normal Color, Warm Assessment and Plan - Assessment and Plan (Free Text) Assessment: 37 year old male with no significant past medical history presents with tactile fever, chills, and nausea that started Tuesday (09/03) morning around 0100. In the ED, patient had a CT Abdomen/Pelvis that showed probably LLL pneumonia and a borderline enlarged appendix. Plan: 1. LLL Pneumonia - CT Abdomen/Pelvis showing probable LLL pneumonia - CXR PA/Lat showed LLL pneumonia - Procal WNL - Blood cultures negative after 24 hrs - Rapid Influenza A&B negative - ID Consulted - Cont Rocephin, Azithromycin - Legionella, HIV, Mycoplasma pending - Tylenol PRN for Fever - Zofran PRN for N/V 2. Mildly Enlarged Appendix - CT Abdomen/Pelvis showing mildly enlarged appendix - Toradol Q6 PRN for pain control - Regular Diet - Surgery consulted, no surgical intervention at this time GI Prophylaxis: Protonix DVT Prophylaxis: SCD's Pt seen and discussed in detail with Dr. Giraldo. Tommy Gee, PGY1 <Regis Giraldo - Last Filed: 09/06/17 16:51> Objective - Vital Signs/Intake and Output Vital Signs (last 24 hours): Temp Pulse Resp BP Pulse Ox 98 F 64 20 95/60 L 97 09/06/17 08:17 09/06/17 08:17 09/06/17 08:17 09/06/17 08:17 09/06/17 08:17 - Medications Medications: Current Medications Acetaminophen (Tylenol 325mg Tab) 650 mg PO Q6H PRN PRN Reason: Fever >100.4 F Last Admin: 09/05/17 04:27 Dose: 650 mg Azithromycin (Zithromax) 500 mg PO DAILY [facility] PRN Reason: Protocol Last Admin: 09/06/17 10:34 Dose: 500 mg Benzocaine/Menthol (Cepacol Sore Throat) 1 erin MT Q2H PRN PRN Reason: Sore Throat Last Admin: 09/05/17 17:28 Dose: 1 erin Guaifenesin/Dextromethorphan (Robitussin Dm) 10 ml PO Q4H PRN PRN Reason: Cough Last Admin: 09/05/17 17:28 Dose: 10 ml Ceftriaxone Sodium (Rocephin 2 Gm Ivpb) 2 gm in 100 mls @ 100 mls/hr IVPB DAILY [facility] PRN Reason: Protocol Last Admin: 09/06/17 10:35 Dose: 100 mls/hr Ketorolac Tromethamine (Toradol) 15 mg IVP Q6 PRN PRN Reason: Pain, moderate (4-7) Last Admin: 09/05/17 13:37 Dose: 15 mg Ondansetron HCl (Zofran Inj) 4 mg IVP Q4H PRN PRN Reason: Nausea/Vomiting Last Admin: 09/05/17 13:32 Dose: 4 mg Oseltamivir Phosphate (Tamiflu Cap) 75 mg PO BID [facility] PRN Reason: Protocol Stop: 09/10/17 10:01 Last Admin: 09/06/17 10:34 Dose: 75 mg Pantoprazole Sodium (Protonix Ec Tab) 40 mg PO ACB [facility] - Labs Labs: 09/06/17 10:20 09/06/17 10:20 Attending/Attestation - Attestation I have personally seen and examined this patient.: Yes I have fully participated in the care of the patient.: Yes I have reviewed all pertinent clinical information, including history, physical exam and plan: Yes Notes (Text): 09/06/17 16:50 attending note; Patient seen and examined with resident. Patient is a 37-year-old male with no significant past medical history was admitted with community-acquired pneumonia. Currently on IV Rocephin and Zithromax and Tamiflu. Clinically improving. HIV, Legionella, influenza negative. Blood cultures negative. Possible discharge home tomorrow. patient will follow-up with PMd Dr. Bullard upon discharge. 09/06/17 16:51
--- NOTE | 2017-09-06 13:24 | CP.PCM.PN ---
Subjective - Date & Time of Evaluation Date of Evaluation: 09/06/17 Time of Evaluation: 09:40 - Subjective Subjective: Comfortable in bed, not in distress, less cough, much improved body aches, no fevers overnight. Objective - Vital Signs/Intake and Output Vital Signs (last 24 hours): Temp Pulse Resp BP Pulse Ox 98 F 64 20 95/60 L 97 09/06/17 08:17 09/06/17 08:17 09/06/17 08:17 09/06/17 08:17 09/06/17 08:17 - Medications Medications: Current Medications Acetaminophen (Tylenol 325mg Tab) 650 mg PO Q6H PRN PRN Reason: Fever >100.4 F Last Admin: 09/05/17 04:27 Dose: 650 mg Azithromycin (Zithromax) 500 mg PO DAILY [facility] PRN Reason: Protocol Last Admin: 09/05/17 11:36 Dose: 500 mg Benzocaine/Menthol (Cepacol Sore Throat) 1 erin MT Q2H PRN PRN Reason: Sore Throat Last Admin: 09/05/17 17:28 Dose: 1 erin Guaifenesin/Dextromethorphan (Robitussin Dm) 10 ml PO Q4H PRN PRN Reason: Cough Last Admin: 09/05/17 17:28 Dose: 10 ml Ceftriaxone Sodium (Rocephin 2 Gm Ivpb) 2 gm in 100 mls @ 100 mls/hr IVPB DAILY [facility] PRN Reason: Protocol Last Admin: 09/05/17 11:36 Dose: 100 mls/hr Ketorolac Tromethamine (Toradol) 15 mg IVP Q6 PRN PRN Reason: Pain, moderate (4-7) Last Admin: 09/05/17 13:37 Dose: 15 mg Ondansetron HCl (Zofran Inj) 4 mg IVP Q4H PRN PRN Reason: Nausea/Vomiting Last Admin: 09/05/17 13:32 Dose: 4 mg Oseltamivir Phosphate (Tamiflu Cap) 75 mg PO BID [facility] PRN Reason: Protocol Stop: 09/10/17 10:01 Last Admin: 09/05/17 17:28 Dose: 75 mg Pantoprazole Sodium (Protonix Inj) 40 mg IVP DAILY [facility] Last Admin: 09/05/17 11:37 Dose: 40 mg - Constitutional Appears: Non-toxic - Head Exam Head Exam: NORMAL INSPECTION - ENT Exam ENT Exam: Mucous Membranes Moist - Neck Exam Neck Exam: absent: Meningismus - Respiratory Exam Respiratory Exam: Decreased Breath Sounds - Cardiovascular Exam Cardiovascular Exam: +S1, +S2 - GI/Abdominal Exam GI & Abdominal Exam: Soft. absent: Tenderness Assessment and Plan - Assessment and Plan (Free Text) Plan: Assessment Sepsis due to left lower lobe pneumonia R/O Influenza Plan continue Rocephin and Zithromax as well as Tamiflu day 2; blood cx are negative ; PCT is only 0.07; rapid flu test is negative; reviewed CT A/P by tomorrow, as long as he continues to improve, may change to PO antibiotics ( should complete 5 days of Tamiflu and 5-7 days of antibiotics) will continue to monitor clinically
[2017-09-06 19:05] VITALS: RESP 18
[2017-09-07 06:22] LABS: HEMOGLOBIN 13.2 g/dL (14.0-18.0); MEAN CELL VOLUME 89.6 fl (80.0-105.0); MEAN CORPUSCULAR HEMOGLOBIN 29.8 pg (25.0-35.0); MEAN CORPUSCULAR HGB CONC 33.2 g/dl (31.0-37.0); MEAN PLATELET VOLUME 9.8 fl (7.0-11.0); RBC 4.43 10^6/uL (3.5-6.1); RED CELL DISTRIBUTION WIDTH 12.6 % (11.5-14.5); WHITE BLOOD COUNT 5.9 10^3/ul (4.5-11.0)
[2017-09-07 06:44] LABS: ALB/GLOB RATIO 1.1 (1.1-1.8); ALBUMIN 3.8 g/dL (3.0-4.8); ALT/SGPT 61 U/L (7-56); AST/SGOT 50 U/L (17-59); BLOOD UREA NITROGEN 13 mg/dL (7-21); CALCIUM 9.3 mg/dL (8.4-10.5); GFR AFRICAN-AMERICAN > 60; GFR NON-AFRICAN AMERICAN > 60
[2017-09-07] MEDS ORDERED: Pantoprazole 40 mg EC Tab PO SCH (07:30)
[2017-09-07] MEDS: cefTRIAXone 2 GM IN NS 2 GM/100 ML BAG IVPB SCH (09:48)
[2017-09-07 10:10] VITALS: BP 105/69; PULSE 50; TEMP 98
--- NOTE | 2017-09-07 13:01 | CP.PCM.DIS ---
<Lavelle Gee - Last Filed: 09/07/17 12:47> Provider - Provider Date of Admission: 09/05/17 14:56 Attending physician: Regis Giraldo MD Consults: ID: [id number] Surgery: [email or web address] Time Spent in preparation of Discharge (in minutes): 45 Hospital Course - Lab Results Lab Results: Most Recent Lab Values WBC 5.9 10^3/ul (4.5-11.0) 09/07/17 06:00 RBC 4.43 10^6/uL (3.5-6.1) 09/07/17 06:00 Hgb 13.2 g/dL (14.0-18.0) L 09/07/17 06:00 Hct 39.7 % (42.0-52.0) L 09/07/17 06:00 MCV 89.6 fl (80.0-105.0) 09/07/17 06:00 MCH 29.8 pg (25.0-35.0) 09/07/17 06:00 MCHC 33.2 g/dl (31.0-37.0) 09/07/17 06:00 RDW 12.6 % (11.5-14.5) 09/07/17 06:00 Plt Count 224 10^3/uL (120.0-450.0) 09/07/17 06:00 MPV 9.8 fl (7.0-11.0) 09/07/17 06:00 Gran % 73.5 % (50.0-68.0) H 09/05/17 05:30 Lymph % (Auto) 15.0 % (22.0-35.0) L 09/05/17 05:30 [place] % (Auto) 9.1 % (1.0-6.0) H 09/05/17 05:30 Eos % (Auto) 2.1 % (1.5-5.0) 09/05/17 05:30 Baso % (Auto) 0.3 % (0.0-3.0) 09/05/17 05:30 Gran # 5.64 (1.4-6.5) 09/05/17 05:30 Lymph # 1.2 (1.2-3.4) 09/05/17 05:30 [place] # 0.7 (0.1-0.6) H 09/05/17 05:30 Eos # 0.2 (0.0-0.7) 09/05/17 05:30 Baso # 0.02 K/mm3 (0.0-2.0) 09/05/17 05:30 pO2 32 mm/Hg (30-55) 09/04/17 17:35 VBG pH 7.35 (7.32-7.43) 09/04/17 17:35 VBG pCO2 53.0 (40-60) 09/04/17 17:35 VBG HCO3 29.3 mmol/l (21-28) H 09/04/17 17:35 VBG Total CO2 30.9 mmol.L (22-28) H 09/04/17 17:35 VBG O2 Sat (Calc) 67.8 % (40-65) H 09/04/17 17:35 VBG Base Excess 2.5 mmol/L (0.0-2.0) H 09/04/17 17:35 VBG Potassium 4.0 mmol/L (3.6-5.2) 09/04/17 17:35 Sodium 135.0 mmol/L (132-148) 09/04/17 17:35 Chloride 100.0 mmol/L (98-107) 09/04/17 17:35 Glucose 110 mg/dl (75-110) 09/04/17 17:35 Lactate 1.1 mmol/L (0.7-2.1) 09/04/17 17:35 FiO2 21.0 % 09/04/17 17:35 Sodium 145 mmol/L (132-148) 09/07/17 06:00 Potassium 4.0 mmol/L (3.6-5.0) 09/07/17 06:00 Chloride 106 mmol/L (98-107) 09/07/17 06:00 Carbon Dioxide 27 mmol/L (21-33) 09/07/17 06:00 Anion Gap 16 (10-20) 09/07/17 06:00 BUN 13 mg/dL (7-21) 09/07/17 06:00 Creatinine 0.8 mg/dl (0.8-1.5) 09/07/17 06:00 Est GFR ( Amer) > 60 09/07/17 06:00 Est GFR (Non-Af Amer) > 60 09/07/17 06:00 Random Glucose 112 mg/dL (70-110) H 09/07/17 06:00 Calcium 9.3 mg/dL (8.4-10.5) 09/07/17 06:00 Magnesium 2.0 mg/dL (1.7-2.2) 09/04/17 17:35 Total Bilirubin 0.3 mg/dL (0.2-1.3) 09/07/17 06:00 AST 50 U/L (17-59) 09/07/17 06:00 ALT 61 U/L (7-56) H 09/07/17 06:00 Alkaline Phosphatase 113 U/L (38-126) 09/07/17 06:00 Total Protein 7.4 g/dL (5.8-8.3) 09/07/17 06:00 Albumin 3.8 g/dL (3.0-4.8) 09/07/17 06:00 Globulin 3.6 gm/dL 09/07/17 06:00 Albumin/Globulin Ratio 1.1 (1.1-1.8) 09/07/17 06:00 Lipase 43 U/L (23-300) 09/04/17 17:35 Procalcitonin 0.07 NG/ML (0.19-0.49) L 09/05/17 05:30 Venous Blood Potassium 4.0 mmol/L (3.6-5.2) 09/04/17 17:35 Urine Color Yellow (YELLOW) 09/04/17 17:35 Urine Appearance Clear (CLEAR) 09/04/17 17:35 Urine pH 6.0 (4.7-8.0) 09/04/17 17:35 Ur Specific [place] 1.025 (1.005-1.035) 09/04/17 17:35 Urine Protein Trace mg/dL (<30 mg/dL) H 09/04/17 17:35 Urine Glucose (UA) Negative mg/dL (NEGATIVE) 09/04/17 17:35 Urine Ketones Trace mg/dL (NEGATIVE) H 09/04/17 17:35 Urine Blood Negative (NEGATIVE) 09/04/17 17:35 Urine Nitrate Negative (NEGATIVE) 09/04/17 17:35 Urine Bilirubin Negative (NEGATIVE) 09/04/17 17:35 Urine Urobilinogen 0.2 E.U./dL (<1 E.U./dL) 09/04/17 17:35 Ur Leukocyte Esterase Negative [place]/uL (NEGATIVE) 09/04/17 17:35 Urine RBC 1 - 3 /hpf (0-2) 09/04/17 17:35 Urine WBC 2 - 5 /hpf (0-6) 09/04/17 17:35 Ur Epithelial Cells 0 - 2 /hpf (0-5) 09/04/17 17:35 Urine Bacteria Mod (NEG) 09/04/17 17:35 HIV 1&2 Ag/Ab, 4th Gen Nonreactive (Nonreactive) 09/05/17 06:00 Influenza Typ A,B (EIA) Negative for flu a/b (NEGATIVE) 09/04/17 17:20 Ur L.pneumophila Ag Negative (NEGATIVE) 09/06/17 06:30 - Hospital Course Hospital Course: Mr. Hitchcock is a 37 year old male with no significant past medical history who presented with tactile fever, chills, and nausea that started Tuesday (09/03) morning around 0100. Patient reported that Tuesday morning he awoke with shaking chills and fever. He endorsed intermittent chills and feelings of warmth throughout the next 48 hours. On the morning of admission he felt slightly dizzy and nauseous, which prompted him to come to the hospital for further evaluation. Patient has also been having intermittent LUQ pain for weeks as well as symptoms of indigestion and non-bloody diarrhea that are triggered with certain foods, mostly foods high in fat. He also complained of a nonproductive cough intermittently for approximately 7 days prior to admission. In the ED, patient was found to afebrile, but no leukocytosis. UA was negative CT abdomen/pelvis showed mildly enlarged appendix and left lower lobe pneumonia. PA and lateral chest x-ray showed left lower lobe pneumonia. Patient was admitted for evaluation and treatment for left lower lobe pneumonia. ID was consulted for medication recommendations. Pt was placed on azithromycin, rocephin, and Tamiflu. HIV, Influeza A and B, and legionella were negative. Blood cultures were negative. Procalcitonin was negative. Surgery was consulted due to incidental appendix finding on CT. However, patient did not present clinically with appendicitis. Thus, no surgical intervention was recommended. Today, the patient was seen and examined at bedside. Pt stated that his cough and shortness of breath had greatly improved. Pt was afebril for > 24 hours. As the patient was medically stable, he was discharged. Pt was instructed to take 2 more days of tamiflu, which would complete a 5 day course, and a 7 day course of Levaquin. Pt will follow up with his PMD within one week. Patient was given a work excuse and he will return to work on September 12. Discharge Diagnosis 1. Left lower lobe pneumonia Discharge Medications - Tamiflu 75 mg PO BID x2 days - Levaquin 750 mg PO daily x7 days - Robitussin DM prn for cough Discharge Exam - Head Exam Head Exam: NORMAL INSPECTION - Eye Exam Eye Exam: Normal appearance - ENT Exam ENT Exam: Normal Exam - Neck Exam Neck exam: Normal Inspection - Respiratory Exam Respiratory Exam: absent: Rales, Rhonchi, Wheezes - Cardiovascular Exam Cardiovascular Exam: RRR, +S1, +S2. absent: Diastolic murmur, Gallop, Rubs, Systolic Murmur - GI/Abdominal Exam GI & Abdominal Exam: Soft. absent: Distended, Guarding, Rebound, Tenderness - Extremities Exam Extremities exam: normal inspection - Back Exam Back exam: NORMAL INSPECTION - Neurological Exam Neurological exam: Alert, Oriented x3 - Psychiatric Exam Psychiatric exam: Normal Affect, Normal Mood - Skin Skin Exam: Dry, Intact, Normal Color, Warm Discharge Plan - Discharge Medications Prescriptions: guaiFENesin/Dextromethorphan [Robitussin DM] 10 ml PO Q4H PRN 5 Days udc PRN Reason: Cough Levofloxacin [Levaquin] 750 mg PO DAILY 7 Days tablet Oseltamivir [Tamiflu Cap] 75 mg PO BID #4 cap - Follow Up Plan Condition: STABLE Disposition: HOME/ ROUTINE Instructions: Viral Pneumonia (DC), Bacterial Pneumonia (DC) Additional Instructions: 1. Follow up with PMD within 1 week 2. Complete 2 more days of Tamiflu 3. Complete 7 day course of antibiotics 4. Use robitussin as needed for cough 5. May return to work on TuesdaySep 12 6. Return to ED if symptoms worsen Referrals: Anuj Vences MD [Staff Provider] - <Regis Giraldo - Last Filed: 09/07/17 15:26> Provider - Provider Date of Admission: 09/05/17 14:56 Attending physician: Regis Giraldo MD Hospital Course - Lab Results Lab Results: Most Recent Lab Values WBC 5.9 10^3/ul (4.5-11.0) 09/07/17 06:00 RBC 4.43 10^6/uL (3.5-6.1) 09/07/17 06:00 Hgb 13.2 g/dL (14.0-18.0) L 09/07/17 06:00 Hct 39.7 % (42.0-52.0) L 09/07/17 06:00 MCV 89.6 fl (80.0-105.0) 09/07/17 06:00 MCH 29.8 pg (25.0-35.0) 09/07/17 06:00 MCHC 33.2 g/dl (31.0-37.0) 09/07/17 06:00 RDW 12.6 % (11.5-14.5) 09/07/17 06:00 Plt Count 224 10^3/uL (120.0-450.0) 09/07/17 06:00 MPV 9.8 fl (7.0-11.0) 09/07/17 06:00 Gran % 73.5 % (50.0-68.0) H 09/05/17 05:30 Lymph % (Auto) 15.0 % (22.0-35.0) L 09/05/17 05:30 [place] % (Auto) 9.1 % (1.0-6.0) H 09/05/17 05:30 Eos % (Auto) 2.1 % (1.5-5.0) 09/05/17 05:30 Baso % (Auto) 0.3 % (0.0-3.0) 09/05/17 05:30 Gran # 5.64 (1.4-6.5) 09/05/17 05:30 Lymph # 1.2 (1.2-3.4) 09/05/17 05:30 [place] # 0.7 (0.1-0.6) H 09/05/17 05:30 Eos # 0.2 (0.0-0.7) 09/05/17 05:30 Baso # 0.02 K/mm3 (0.0-2.0) 09/05/17 05:30 pO2 32 mm/Hg (30-55) 09/04/17 17:35 VBG pH 7.35 (7.32-7.43) 09/04/17 17:35 VBG pCO2 53.0 (40-60) 09/04/17 17:35 VBG HCO3 29.3 mmol/l (21-28) H 09/04/17 17:35 VBG Total CO2 30.9 mmol.L (22-28) H 09/04/17 17:35 VBG O2 Sat (Calc) 67.8 % (40-65) H 09/04/17 17:35 VBG Base Excess 2.5 mmol/L (0.0-2.0) H 09/04/17 17:35 VBG Potassium 4.0 mmol/L (3.6-5.2) 09/04/17 17:35 Sodium 135.0 mmol/L (132-148) 09/04/17 17:35 Chloride 100.0 mmol/L (98-107) 09/04/17 17:35 Glucose 110 mg/dl (75-110) 09/04/17 17:35 Lactate 1.1 mmol/L (0.7-2.1) 09/04/17 17:35 FiO2 21.0 % 09/04/17 17:35 Sodium 145 mmol/L (132-148) 09/07/17 06:00 Potassium 4.0 mmol/L (3.6-5.0) 09/07/17 06:00 Chloride 106 mmol/L (98-107) 09/07/17 06:00 Carbon Dioxide 27 mmol/L (21-33) 09/07/17 06:00 Anion Gap 16 (10-20) 09/07/17 06:00 BUN 13 mg/dL (7-21) 09/07/17 06:00 Creatinine 0.8 mg/dl (0.8-1.5) 09/07/17 06:00 Est GFR ( Amer) > 60 09/07/17 06:00 Est GFR (Non-Af Amer) > 60 09/07/17 06:00 Random Glucose 112 mg/dL (70-110) H 09/07/17 06:00 Calcium 9.3 mg/dL (8.4-10.5) 09/07/17 06:00 Magnesium 2.0 mg/dL (1.7-2.2) 09/04/17 17:35 Total Bilirubin 0.3 mg/dL (0.2-1.3) 09/07/17 06:00 AST 50 U/L (17-59) 09/07/17 06:00 ALT 61 U/L (7-56) H 09/07/17 06:00 Alkaline Phosphatase 113 U/L (38-126) 09/07/17 06:00 Total Protein 7.4 g/dL (5.8-8.3) 09/07/17 06:00 Albumin 3.8 g/dL (3.0-4.8) 09/07/17 06:00 Globulin 3.6 gm/dL 09/07/17 06:00 Albumin/Globulin Ratio 1.1 (1.1-1.8) 09/07/17 06:00 Lipase 43 U/L (23-300) 09/04/17 17:35 Procalcitonin 0.07 NG/ML (0.19-0.49) L 09/05/17 05:30 Venous Blood Potassium 4.0 mmol/L (3.6-5.2) 09/04/17 17:35 Urine Color Yellow (YELLOW) 09/04/17 17:35 Urine Appearance Clear (CLEAR) 09/04/17 17:35 Urine pH 6.0 (4.7-8.0) 09/04/17 17:35 Ur Specific [place] 1.025 (1.005-1.035) 09/04/17 17:35 Urine Protein Trace mg/dL (<30 mg/dL) H 09/04/17 17:35 Urine Glucose (UA) Negative mg/dL (NEGATIVE) 09/04/17 17:35 Urine Ketones Trace mg/dL (NEGATIVE) H 09/04/17 17:35 Urine Blood Negative (NEGATIVE) 09/04/17 17:35 Urine Nitrate Negative (NEGATIVE) 09/04/17 17:35 Urine Bilirubin Negative (NEGATIVE) 09/04/17 17:35 Urine Urobilinogen 0.2 E.U./dL (<1 E.U./dL) 09/04/17 17:35 Ur Leukocyte Esterase Negative [place]ah/uL (NEGATIVE) 09/04/17 17:35 Urine RBC 1 - 3 /hpf (0-2) 09/04/17 17:35 Urine WBC 2 - 5 /hpf (0-6) 09/04/17 17:35 Ur Epithelial Cells 0 - 2 /hpf (0-5) 09/04/17 17:35 Urine Bacteria Mod (NEG) 09/04/17 17:35 HIV 1&2 Ag/Ab, 4th Gen Nonreactive (Nonreactive) 09/05/17 06:00 Influenza Typ A,B (EIA) Negative for flu a/b (NEGATIVE) 09/04/17 17:20 Ur L.pneumophila Ag Negative (NEGATIVE) 09/06/17 06:30 Attending/Attestation - Attestation I have personally seen and examined this patient.: Yes I have fully participated in the care of the patient.: Yes I have reviewed all pertinent clinical information, including history, physical exam and plan: Yes Notes (Text): 09/07/17 15:25 attending note; Patient seen and examined with resident. Patient is a 37-year-old male with no significant past medical history was admitted with community-acquired pneumonia. Currently on IV Rocephin and Zithromax and Tamiflu. Clinically improving. HIV, Legionella, influenza negative. Blood cultures negative. Patient is clinically improving. Not on oxygen. Ambulating fine. Tolerating diet well. Will be discharged home today. Complete by mouth Levaquin and Tamiflu. patient will follow-up with PMd Dr. Bullard upon discharge.
--- NOTE | 2017-09-07 15:48 | CP.PCM.PN ---
Subjective - Date & Time of Evaluation Date of Evaluation: 09/07/17 Time of Evaluation: 10:30 - Subjective Subjective: Comfortable, no more body aches, no more fevers. Objective - Vital Signs/Intake and Output Vital Signs (last 24 hours): Temp Pulse Resp BP Pulse Ox 98.2 F 47 L 18 122/83 97 09/06/17 16:00 09/06/17 16:00 09/06/17 16:00 09/06/17 16:00 09/06/17 16:00 Intake and Output: 09/07/17 09/07/17 06:59 18:59 Intake Total 780 Balance 780 - Medications Medications: Current Medications Acetaminophen (Tylenol 325mg Tab) 650 mg PO Q6H PRN PRN Reason: Fever >100.4 F Last Admin: 09/05/17 04:27 Dose: 650 mg Azithromycin (Zithromax) 500 mg PO DAILY [facility] PRN Reason: Protocol Last Admin: 09/06/17 10:34 Dose: 500 mg Benzocaine/Menthol (Cepacol Sore Throat) 1 erin MT Q2H PRN PRN Reason: Sore Throat Last Admin: 09/05/17 17:28 Dose: 1 erin Guaifenesin/Dextromethorphan (Robitussin Dm) 10 ml PO Q4H PRN PRN Reason: Cough Last Admin: 09/05/17 17:28 Dose: 10 ml Ceftriaxone Sodium (Rocephin 2 Gm Ivpb) 2 gm in 100 mls @ 100 mls/hr IVPB DAILY [facility] PRN Reason: Protocol Last Admin: 09/06/17 10:35 Dose: 100 mls/hr Ketorolac Tromethamine (Toradol) 15 mg IVP Q6 PRN PRN Reason: Pain, moderate (4-7) Last Admin: 09/05/17 13:37 Dose: 15 mg Ondansetron HCl (Zofran Inj) 4 mg IVP Q4H PRN PRN Reason: Nausea/Vomiting Last Admin: 09/05/17 13:32 Dose: 4 mg Oseltamivir Phosphate (Tamiflu Cap) 75 mg PO BID [facility] PRN Reason: Protocol Stop: 09/10/17 10:01 Last Admin: 09/06/17 17:32 Dose: 75 mg Pantoprazole Sodium (Protonix Ec Tab) 40 mg PO ACB [facility] Last Admin: 09/07/17 08:16 Dose: 40 mg - Labs Labs: 09/07/17 06:00 09/07/17 06:00 - Constitutional Appears: Non-toxic - Head Exam Head Exam: NORMAL INSPECTION - Neck Exam Neck Exam: absent: Meningismus - Respiratory Exam Respiratory Exam: Decreased Breath Sounds - Cardiovascular Exam Cardiovascular Exam: +S1, +S2 - GI/Abdominal Exam GI & Abdominal Exam: Soft. absent: Tenderness Assessment and Plan - Assessment and Plan (Free Text) Plan: Assessment Sepsis due to left lower lobe pneumonia R/O Influenza Plan on Rocephin and Zithromax as well as Tamiflu day 3; blood cx are negative; PCT is only 0.07; rapid flu test is negative; reviewed CT A/P by tomorrow, as long as he continues to improve, may change to PO antibiotics, ie. Levaquin (should complete 5 days of Tamiflu and 5-7 days of antibiotics)
== END 2017-09-07 12:56 | disposition home or self-care (01) ==
LOC: ED 16:08 → ERH 21:29 → 3RNO 22:40 → OBSVTOIN 09-05 14:56 → INTOOBSV 09-05 14:56 → 3RNO 09-06 19:37
PROVIDERS: ADMIT Internal Medicine; ATTEND Internal Medicine
DX: A41.9 Sepsis, unspecified organism (principal); J18.9 Pneumonia, unspecified organism; K37 Unspecified appendicitis; R40.2412 Glasgow coma scale score 13-15, at arrival to emergency department; H00.021 Hordeolum internum right upper eyelid
CPT/HCPCS: 36415; 71045; 71046; 74177; 80053; 81001; 82803; 83690; 83735; 84145; 85025; 85027; 86710; 86738; 87040; 87389; 87449; 87804; 93005; 96361; 96365; 96368; 96375; 96376; 99285; C9113; G0378; J0696; J1885; J2405; J2543; J7040; Q9966; Q9967

== ENCOUNTER 2017-10-13 18:25 | Emergency (ER) | payer MEDICAID ==
[2017-10-13 18:29] VITALS: BMI 25.0
[2017-10-13] MEDS ORDERED: Multivitamin (MVI) 10 ML, Thiamine 100 MG, Folic Acid 1 MG in Sodium Chloride 0.9% 1,00... IV ONE (18:43)
[2017-10-13] MEDS ORDERED: DiphenhydrAMINE 50 mg/ml Inj IM STA (18:43)
[2017-10-13] MEDS ORDERED: Sodium Chloride 0.9% 1,000 ML IV STA (18:43)
[2017-10-13 19:07] LABS: BASO # 0.07 K/mm3 (0.0-2.0); BASO % 0.9 % (0.0-3.0); EOS # 0.2 (0.0-0.7); EOS % 2.7 % (1.5-5.0); GRAN # 3.64 (1.4-6.5); GRAN % 44.6 % (50.0-68.0); HEMOGLOBIN 15.6 g/dL (14.0-18.0); LYMPH # 3.7 (1.2-3.4); LYMPH % 45.3 % (22.0-35.0); MEAN CELL VOLUME 89.3 fl (80.0-105.0); MEAN CORPUSCULAR HEMOGLOBIN 30.9 pg (25.0-35.0); MEAN CORPUSCULAR HGB CONC 34.6 g/dl (31.0-37.0); MONO # 0.5 (0.1-0.6); MONO % 6.5 % (1.0-6.0); RBC 5.05 10^6/uL (3.5-6.1); RED CELL DISTRIBUTION WIDTH 13.4 % (11.5-14.5); WHITE BLOOD COUNT 8.2 10^3/ul (4.5-11.0)
--- NOTE | 2017-10-13 19:10 | ED PDOC ---
Arrival/HPI - General Chief Complaint: Alcohol Ingestion Time Seen by Provider: 10/13/17 18:26 Historian: Patient - History of Present Illness Narrative History of Present Illness (Text): 10/13/17 19:10 A 37 year old male brought into the emergency department by EMS for alcohol intoxication. Patient was found lying in the [place] [address] refusing to get off the road. Patient became violent and was shouting profanities. [place] police was called and patient was brought in for evaluation. Patient admits to drinking alcohol today. He denies any trauma, injury, fever, chills, nausea, vomiting, abdominal pain, chest pain, shortness of breath, suicidal ideation, homicidal ideation, hallucinations or any other complaints. Time/Duration: Prior to Arrival Context: Other Past Medical History - Provider Review Nursing Documentation Reviewed: Yes - Past History Past History: No Previous - Infectious Disease Hx of Infectious Diseases: None - Tetanus Immunization Tetanus Immunization: Unknown - Cardiac Hx Cardiac Disorders: No - Pulmonary Hx Respiratory Disorders: No - Neurological Hx Neurological Disorder: No - HEENT Other/Comment: sty tp R upper eyelid - Renal Hx Renal Disorder: No - Endocrine/Metabolic Hx Endocrine Disorders: No - Hematological/Oncological Hx Blood Disorders: No - Integumentary Hx Dermatological Disorder: No - Musculoskeletal/Rheumatological Hx Falls: No - Gastrointestinal Hx Gastrointestinal Disorders: No - Genitourinary/Gynecological Hx Genitourinary Disorders: No - Psychiatric Hx Psychophysiologic Disorder: No Hx Substance Use: No - Surgical History Hx Orthopedic Surgery: Yes (R 5TH FINGER) Other/Comment: Right Hand Sx. - Anesthesia Hx Anesthesia: No Hx Anesthesia Reactions: No Hx Malignant Hyperthermia: No - Suicidal Assessment Feels Threatened In Home Enviroment: No Family/Social History - Physician Review Nursing Documentation Reviewed: Yes Family/Social History: No Known Family HX Smoking Status: Never Smoked Hx Alcohol Use: No Hx Substance Use: No Hx Substance Use Treatment: No Allergies/Home Meds Allergies/Adverse Reactions: Allergies No Known Allergies Allergy (Verified 10/13/17 18:30) Review of Systems - Review of Systems Systems not reviewed;Unavailable: Intoxicated Physical Exam Vital Signs Reviewed: Yes Vital Signs Temp Pulse Resp BP Pulse Ox 10/14/17 06:25 97.9 F 78 19 121/70 99 10/14/17 06:00 97.8 F 76 16 125/71 98 10/14/17 04:00 97.8 F 76 16 138/70 98 10/14/17 02:00 98.3 F 74 16 109/66 94 L 10/14/17 00:00 97.8 F 100 H 16 138/75 99 10/13/17 22:00 97.8 F 98 H 18 140/72 98 10/13/17 20:25 97.8 F 90 18 148/74 100 10/13/17 18:41 97.9 F 106 H 18 164/91 H 96 Temperature: Afebrile Blood Pressure: Hypertensive Pulse: Tachycardic Respiratory Rate: Normal Appearance: Positive for: Well-Appearing, Non-Toxic, Comfortable Pain Distress: None Mental Status: Positive for: Alert and Oriented X 3 - Systems Exam Head: Present: Atraumatic, Normocephalic Pupils: Present: PERRL Extroacular Muscles: Present: EOMI Conjunctiva: Present: Normal Mouth: Present: Moist Mucous Membranes Respiratory/Chest: Present: Clear to Auscultation, Good Air Exchange. No: Respiratory Distress, Accessory Muscle Use Cardiovascular: Present: Regular Rate and Rhythm, Normal S1, S2. No: Murmurs Abdomen: Present: Normal Bowel Sounds. No: Tenderness, Distention, Peritoneal Signs Upper Extremity: Present: Normal Inspection. No: Cyanosis, Edema Lower Extremity: Present: Normal Inspection, Other. No: Edema Skin: Present: Warm, Dry, Normal Color. No: Rashes Psychiatric: Present: Intoxicated Medical Decision Making ED Course and Treatment: 10/13/17 19:10 Impression: A 37 year old male brought in for alcohol intoxication. Plan: -- Chest xray -- EKG -- Labs -- Urinalysis -- Banana Bag, Benadryl, Haldol, Ativan and IV fluids -- Reassess and disposition Progress Notes: Patient was uncooperative upon arrival. He was violent and screaming profanities. Patient was restrained and chemically sedated for his safety and the safety of the emergency room staff. 10/13/17 22:[address] Fontenot, pending sobriety, re-evaluation and disposition. - Lab Interpretations Lab Results: 10/13/17 18:50 10/13/17 18:50 Lab Results 10/13/17 19:40: Urine Opiates Screen Negative, Urine Methadone Screen Negative, Ur Barbiturates Screen Negative, Ur Phencyclidine Scrn Negative, Ur Amphetamines Screen Negative, U Benzodiazepines Scrn Negative, U Oth Cocaine Metabols Negative, U Cannabinoids Screen Negative 10/13/17 19:40: Urine Color Yellow, Urine Appearance Clear, Urine pH 6.0, Ur Specific [place] >= 1.030, Urine Protein 100 H, Urine Glucose (UA) Negative, Urine Ketones Negative, Urine Blood Trace-lysed H, Urine Nitrate Negative, Urine Bilirubin Negative, Urine Urobilinogen 0.2, Ur Leukocyte Esterase Negative , Urine RBC Negative, Urine WBC 0 - 2, Ur Epithelial Cells 0 - 2, Urine Bacteria Trace 10/13/17 18:50: Alcohol, Quantitative 336 H* 10/13/17 18:50: Salicylates < 1 L, Acetaminophen < 10.0 L 10/13/17 18:50: Sodium 150 H, Potassium 3.4 L, Chloride 106, Carbon Dioxide 24, Anion Gap 24 H, BUN 10, Creatinine 1.0, Est GFR ( Amer) > 60, Est GFR ( Non-Af Amer) > 60, Random Glucose 115 H, Calcium 9.6, Total Bilirubin 0.2, AST 48, ALT 55, Alkaline Phosphatase 138 H D, Total Protein 8.7 H, Albumin 4.8, Globulin 3.9, Albumin/Globulin Ratio 1.2 10/13/17 18:50: WBC 8.2 D, RBC 5.05, Hgb 15.6 D, Hct 45.1, MCV 89.3, MCH 30.9 , MCHC 34.6, RDW 13.4, Plt Count 278, MPV 10.0, Gran % 44.6 L, Lymph % (Auto) 45.3 H, [place] % (Auto) 6.5 H, Eos % (Auto) 2.7, Baso % (Auto) 0.9, Gran # 3.64, Lymph # (Auto) 3.7 H, [place] # (Auto) 0.5, Eos # (Auto) 0.2, Baso # (Auto) 0.07 I have reviewed the lab results: Yes - RAD Interpretation Radiology Orders: 10/13/17 18:43 CHEST PORTABLE [RAD] Stat - Medication Orders Current Medication Orders: Discontinued Medications Diphenhydramine HCl (Benadryl) 50 mg IM STAT STA Stop: 10/13/17 18:44 Last Admin: 10/13/17 19:20 Dose: 50 mg IM Administration Charges Document 10/13/17 19:20 AB (Rec: 10/13/17 19:20 AB [facility] [id number] Injection Site MAR Injection Site Left Vastus Lateralis Charges for Administration # of IM Administrations 1 Haloperidol Lactate (Haldol) 5 mg IM STAT STA PRN Reason: Protocol Stop: 10/13/17 18:44 Last Admin: 10/13/17 19:19 Dose: 5 mg IM Administration Charges Document 10/13/17 19:19 AB (Rec: 10/13/17 19:20 AB [facility] [id number] Injection Site MAR Injection Site Left Deltoid Charges for Administration # of IM Administrations 1 Multivitamins/Vitamin C 10 ml/Thiamine HCl 100 mg/ Folic Acid 1 mg/ Sodium Chloride 1,011.2 mls @ 1,000 mls/hr IV .Q1H1M ONE Stop: 10/13/17 19:43 Last Admin: 10/13/17 19:19 Dose: 1,000 mls/hr eMAR Start Stop Document 10/13/17 19:19 AB (Rec: 10/13/17 19:19 AB [facility] [id number] Intravenous Solution Start Date 10/13/17 Start Time 19:19 End Date 10/13/17 End time 20:19 Total Infusion Time 60 Sodium Chloride (Sodium Chloride 0.9%) 1,000 mls @ 999 mls/hr IV .Q1H1M STA Stop: 10/13/17 19:43 Last Admin: 10/13/17 19:21 Dose: 999 mls/hr eMAR Start Stop Document 10/13/17 19:21 AB (Rec: 10/13/17 19:21 AB [facility] [id number] Intravenous Solution Start Date 10/13/17 Start Time 19:21 End Date 10/13/17 End time 20:21 Total Infusion Time 60 Lorazepam (Ativan) 2 mg IM ONCE ONE PRN Reason: Protocol Stop: 10/13/17 18:44 Last Admin: 10/13/17 19:20 Dose: 2 mg IM Administration Charges Document 10/13/17 19:20 AB (Rec: 10/13/17 19:20 AB [facility] [id number] Injection Site MAR Injection Site Right Deltoid Charges for Administration # of IM Administrations 1 - PA / OPERATIONS REPRESENTATIVE / Resident Statement MD/DO has reviewed & agrees with the documentation as recorded. - Scribe Statement The provider has reviewed the documentation as recorded by the Jeweliblucero Humphries Provider Scribe Attestation: All medical record entries made by the Scribe were at my direction and personally dictated by me. I have reviewed the chart and agree that the record accurately reflects my personal performance of the history, physical exam, medical decision making, and the department course for this patient. I have also personally directed, reviewed, and agree with the discharge instructions and disposition. Disposition/Present on Arrival - Present on Arrival Any Indicators Present on Arrival: No History of DVT/PE: No History of Uncontrolled Diabetes: No Urinary Catheter: No History of Decub. Ulcer: No History Surgical Site Infection Following: None - Disposition Have Diagnosis and Disposition been Completed?: Yes Diagnosis: Alcohol abuse Disposition: HOME/ ROUTINE Disposition Time: 19:00 Patient Plan: Discharge Condition: GOOD Discharge Instructions (ExitCare): Alcohol Abuse and Alcoholism (DC) Forms: [facility] (Czech)
[2017-10-13 19:16] LABS: ACETAMINOPHEN < 10.0 ug/ml (10.0-20.0); SALICYLATE < 1 mg/dL (2.0-20.0)
[2017-10-13 19:18] LABS: ALB/GLOB RATIO 1.2 (1.1-1.8); ALBUMIN 4.8 g/dL (3.0-4.8); ALT/SGPT 55 U/L (7-56); AST/SGOT 48 U/L (17-59); BLOOD UREA NITROGEN 10 mg/dL (7-21); CALCIUM 9.6 mg/dL (8.4-10.5); GFR AFRICAN-AMERICAN > 60; GFR NON-AFRICAN AMERICAN > 60
[2017-10-13 20:56] LABS: URINE BILIRUBIN NEGATIVE (NEGATIVE); URINE BLOOD TRACE-LYSED (NEGATIVE); URINE GLUCOSE (UA) NEGATIVE (NEGATIVE); URINE LEUKOCYTE ESTERASE NEGATIVE Leu/uL (NEGATIVE); URINE NITRATE NEGATIVE (NEGATIVE); URINE PROTEIN 100 mg/dL (<30 mg/dL); URINE UROBILINOGEN 0.2 E.U./dL (<1 E.U./dL)
[2017-10-13 21:15] LABS: URINE APPEARANCE CLEAR (CLEAR); URINE COLOR YELLOW (YELLOW)
[2017-10-13 21:20] LABS: URINE BACTERIA TRACE (NEG); URINE EPITHELIAL CELLS 0 - 2 /hpf (0-5); URINE RBC NEGATIVE /hpf (0-2); URINE WBC 0 - 2 /hpf (0-6)
[2017-10-13 21:46] LABS: BARBITURATES, UR NEGATIVE (NEGATIVE); BENZODIAZEPINES, UR NEGATIVE (NEGATIVE); OPIATES, UR NEGATIVE (NEGATIVE); PHENCYCLIDINE, UR NEGATIVE (NEGATIVE)
--- NOTE | 2017-10-13 22:41 | ED PDOC ---
Physical Exam Vital Signs Reviewed: Yes Vital Signs Temp Pulse Resp BP Pulse Ox 10/14/17 04:00 97.8 F 76 16 138/70 98 10/14/17 02:00 98.3 F 74 16 109/66 94 L 10/14/17 00:00 97.8 F 100 H 16 138/75 99 10/13/17 22:00 97.8 F 98 H 18 140/72 98 10/13/17 20:25 97.8 F 90 18 148/74 100 10/13/17 18:41 97.9 F 106 H 18 164/91 H 96 Temperature: Afebrile Blood Pressure: Hypertensive Pulse: Tachycardic Respiratory Rate: Normal Appearance: Positive for: Well-Appearing, Non-Toxic, Comfortable Pain Distress: None Mental Status: Positive for: Alert and Oriented X 3 Finger Stick Blood Glucose: 112 Medical Decision Making ED Course and Treatment: 10/13/17 22:40: Patient endorsed to me by Dr. Napoles, pending sobriety, re- evaluation and disposition. - Lab Interpretations Lab Results: 10/13/17 18:50 10/13/17 18:50 Lab Results 10/13/17 19:40: Urine Opiates Screen Negative, Urine Methadone Screen Negative, Ur Barbiturates Screen Negative, Ur Phencyclidine Scrn Negative, Ur Amphetamines Screen Negative, U Benzodiazepines Scrn Negative, U Oth Cocaine Metabols Negative, U Cannabinoids Screen Negative 10/13/17 19:40: Urine Color Yellow, Urine Appearance Clear, Urine pH 6.0, Ur Specific [place] >= 1.030, Urine Protein 100 H, Urine Glucose (UA) Negative, Urine Ketones Negative, Urine Blood Trace-lysed H, Urine Nitrate Negative, Urine Bilirubin Negative, Urine Urobilinogen 0.2, Ur Leukocyte Esterase Negative , Urine RBC Negative, Urine WBC 0 - 2, Ur Epithelial Cells 0 - 2, Urine Bacteria Trace 10/13/17 18:50: Alcohol, Quantitative 336 H* 10/13/17 18:50: Salicylates < 1 L, Acetaminophen < 10.0 L 10/13/17 18:50: Sodium 150 H, Potassium 3.4 L, Chloride 106, Carbon Dioxide 24, Anion Gap 24 H, BUN 10, Creatinine 1.0, Est GFR ( Amer) > 60, Est GFR ( Non-Af Amer) > 60, Random Glucose 115 H, Calcium 9.6, Total Bilirubin 0.2, AST 48, ALT 55, Alkaline Phosphatase 138 H D, Total Protein 8.7 H, Albumin 4.8, Globulin 3.9, Albumin/Globulin Ratio 1.2 10/13/17 18:50: WBC 8.2 D, RBC 5.05, Hgb 15.6 D, Hct 45.1, MCV 89.3, MCH 30.9 , MCHC 34.6, RDW 13.4, Plt Count 278, MPV 10.0, Gran % 44.6 L, Lymph % (Auto) 45.3 H, [place] % (Auto) 6.5 H, Eos % (Auto) 2.7, Baso % (Auto) 0.9, Gran # 3.64, Lymph # (Auto) 3.7 H, [place] # (Auto) 0.5, Eos # (Auto) 0.2, Baso # (Auto) 0.07 - RAD Interpretation Radiology Orders: 10/13/17 18:43 CHEST PORTABLE [RAD] Stat - Medication Orders Current Medication Orders: Discontinued Medications Diphenhydramine HCl (Benadryl) 50 mg IM STAT STA Stop: 10/13/17 18:44 Last Admin: 10/13/17 19:20 Dose: 50 mg IM Administration Charges Document 10/13/17 19:20 AB (Rec: 10/13/17 19:20 AB [facility] [id number] Injection Site MAR Injection Site Left Vastus Lateralis Charges for Administration # of IM Administrations 1 Haloperidol Lactate (Haldol) 5 mg IM STAT STA PRN Reason: Protocol Stop: 10/13/17 18:44 Last Admin: 10/13/17 19:19 Dose: 5 mg IM Administration Charges Document 10/13/17 19:19 AB (Rec: 10/13/17 19:20 AB [id number]) Injection Site MAR Injection Site Left Deltoid Charges for Administration # of IM Administrations 1 Multivitamins/Vitamin C 10 ml/Thiamine HCl 100 mg/ Folic Acid 1 mg/ Sodium Chloride 1,011.2 mls @ 1,000 mls/hr IV .Q1H1M ONE Stop: 10/13/17 19:43 Last Admin: 10/13/17 19:19 Dose: 1,000 mls/hr eMAR Start Stop Document 10/13/17 19:19 AB (Rec: 10/13/17 19:19 AB [facility] [id number]) Intravenous Solution Start Date 10/13/17 Start Time 19:19 End Date 10/13/17 End time 20:19 Total Infusion Time 60 Sodium Chloride (Sodium Chloride 0.9%) 1,000 mls @ 999 mls/hr IV .Q1H1M STA Stop: 10/13/17 19:43 Last Admin: 10/13/17 19:21 Dose: 999 mls/hr eMAR Start Stop Document 10/13/17 19:21 AB (Rec: 10/13/17 19:21 AB [facility] [id number]) Intravenous Solution Start Date 10/13/17 Start Time 19:21 End Date 10/13/17 End time 20:21 Total Infusion Time 60 Lorazepam (Ativan) 2 mg IM ONCE ONE PRN Reason: Protocol Stop: 10/13/17 18:44 Last Admin: 10/13/17 19:20 Dose: 2 mg IM Administration Charges Document 10/13/17 19:20 AB (Rec: 10/13/17 19:20 AB [facility] [id number]) Injection Site MAR Injection Site Right Deltoid Charges for Administration # of IM Administrations 1 - Scribe Statement The provider has reviewed the documentation as recorded by the Jewelibe Lita Santa Provider Scribe Attestation: All medical record entries made by the Scribe were at my direction and personally dictated by me. I have reviewed the chart and agree that the record accurately reflects my personal performance of the history, physical exam, medical decision making, and the department course for this patient. I have also personally directed, reviewed, and agree with the discharge instructions and disposition. Disposition/Present on Arrival - Present on Arrival Any Indicators Present on Arrival: No History of DVT/PE: No History of Uncontrolled Diabetes: No Urinary Catheter: No History of Decub. Ulcer: No History Surgical Site Infection Following: None - Disposition Have Diagnosis and Disposition been Completed?: Yes Diagnosis: Alcohol abuse Disposition: HOME/ ROUTINE Disposition Time: 06:21 Condition: GOOD Discharge Instructions (ExitCare): Alcohol Abuse and Alcoholism (DC) Forms: [employer] (Greenlandic)
[2017-10-14 06:26] VITALS: BP 121/70; PULSE 78; RESP 19; TEMP 97.9; O2SAT 99
--- NOTE | 2017-10-14 08:44 | RAD ---
HISTORY: medical clearance COMPARISON: Chest radiographs 09/05/2017. FINDINGS: LUNGS: History volume is somewhat diminished with crowding the medial basilar bronchovascular markings. No definite infiltrate is appreciated bilaterally with left lower lobe infiltrate now resolved. PLEURA: No significant pleural effusion identified, no pneumothorax apparent. CARDIOVASCULAR: Normal. OSSEOUS STRUCTURES: No significant abnormalities. VISUALIZED UPPER ABDOMEN: Normal. OTHER FINDINGS: None. IMPRESSION: Limited inspiratory volume resulting crowding the medial basilar bronchovascular markings at the right. No definite infiltrate or pleural effusion bilaterally. Resolution of prior left lower lobe infiltrate.
== END 2017-10-14 06:25 | disposition home or self-care (01) ==
LOC: ED 18:25
DX: F10.10 Alcohol abuse, uncomplicated (principal); Y90.8 Blood alcohol level of 240 mg/100 ml or more
CPT/HCPCS: 71045; 80053; 80320; 80324; 80329; 80345; 80346; 80349; 80353; 80358; 80361; 81001; 83992; 85025; 96365; 96372; 99285; J1200; J1630; J2060; J3411; J7040